=== PATIENT | male | born 1930 | race Caucasian/White ===

== ENCOUNTER 2016-11-16 14:05 | Inpatient (IN) | payer OTHER ==
[~2016-11-16] VITALS: Ht 180.3 cm; Wt 92.5 kg
[~2016-11-16 14:05] MED LIST: DORZ1SOL PO; HRBLS PO; OMEG10007 PO; SIMV10TA2 PO; TIMO0.5S2 IO; TRVOPS OP; ZINC1CAP PO
--- NOTE | 2016-11-16 15:10 | EMERGENCY ROOM VISIT NOTE ---
History Report prepared by Wolfgang: Tin Schmid Under the Supervision of: Dr. Tania Verma D.O. First contact with patient: 14:22 Chief Complaint: CARDIAC ASSESSMENT Stated Complaint: CARDIAC-AFIB/CHF, HIGH BP, SOB, SENT BY DR. ARELLANO Nursing Triage Summary: triage note: pt reports "i kept taking my blood pressure and it was 200/100 and i didn't take it off and it was 190/100 and i have an irregular heart beat." pt has hx of aortic valve replacement, a fib - dr arellano is pt camp advisor. History of Present Illness The patient is a 86 year old male who presents to the Emergency Room for a cardiac assessment. The patient noticed today when he was taking his blood pressure that he felt his heart beating irregularly. His pressure was elevated at 200/100 and 190/100. For the past couple of weeks he notes that he has been having increased shortness of breath. He has a past medical history of an aortic valve replacement, a pacemaker, past PEs, CHF, A FIB, HTN, diabetes, glaucoma, and an ablation. He notes that he was having lower back back for several days with strong smelling urine. He denies any chest pain, palpations, leg swelling, or any other symptoms. He is on Coumadin but does not know what his level has been. Source of History: patient Onset: today Position: other (Cardiac) Symptom Intensity: 200/100 BP Quality: other (HTN) Timing: constant Associated Symptoms: + back pain, + urinary symptoms, No chest pain Note: He denies any leg swelling or any other abnormal symptoms. Review of Systems See HPI for pertinent positives & negatives. A total of 10 systems reviewed and were otherwise negative. Past Medical & Surgical Medical Problems: (1) Atrial fibrillation (2) CAD (coronary artery disease) (3) CHF (congestive heart failure) (4) Diabetes (5) Glaucoma (6) History of deep vein thrombosis (DVT) of lower extremity (7) History of pulmonary embolus (PE) (8) HLD (hyperlipidemia) (9) HTN (hypertension) (10) Pacemaker (11) Pulmonary embolism Surgical Problems: (1) H/O aortic valve replacement (2) S/P AVR (aortic valve replacement) Family History Omitted secondary to the patient's age. Social History Smoking Status: Never Smoker Smokeless Tobacco Use: No Alcohol Use: none Drug Use: none Marital Status: Housing Status: lives with significant other Occupation Status: retired Current/Historical Medications Scheduled Brinzolamide Oph (Azopt Oph), 1 DROP OP BID Cholecalciferol (Vitamin D3), 1,000 INTER.UNIT PO DAILY Colestipol Hcl (Colestid), 4 GM PO BID Desloratadine (Clarinex), 5 MG PO QAM Dorzolamide Hcl (Trusopt Oph), 1 DROPS OP BID Latanoprost (Xalatan 0.005% Oph Mallika), 1 DROPS OP HS Levothyroxine Sodium (Synthroid), 75 MCG PO QAM Metformin Hcl (Glucophage), 500 MG PO BID Sotalol HCl (Sotalol HCl), 80 MG PO BID Timolol Maleate (Timolol Gfs 0.5% (Generic For Timoptic-Xe)), 1 DROP OPB BID Warfarin Sod (Coumadin), 3 TAB PO SuTuWeThSa Warfarin Sod (Coumadin), 4 TAB PO MoFr Allergies Coded Allergies: Aspirin (Verified Allergy, Unknown, SWELLING UPPER LIP, 04/09/09) Physical Exam Vital Signs Date Time Temp Pulse Resp B/P (MAP) Pulse Ox O2 Delivery O2 Flow Rate FiO2 11/16/16 18:03 62 18 149/82 99 Room Air 11/16/16 17:08 60 20 99 Room Air 11/16/16 16:40 81 98 11/16/16 16:31 164/102 11/16/16 15:40 86 24 11/16/16 15:35 87 25 11/16/16 15:21 86 16 155/82 96 Room Air 11/16/16 15:20 155/82 11/16/16 15:05 92 19 11/16/16 14:37 162/ 11/16/16 14:35 95 24 11/16/16 14:29 95 11/16/16 14:12 36.6 105 18 154/79 99 Room Air Physical Exam GENERAL: alert, well appearing, well nourished, no distress, non-toxic EYE EXAM: normal conjunctiva, PERRL and EOM's grossly intact OROPHARYNX: no exudate, no erythema, lips, buccal mucosa, and tongue normal and mucous membranes are moist NECK: supple, no nuchal rigidity, no adenopathy, non-tender LUNGS: Clear to auscultation. Normal chest wall mechanics HEART: Irregular rhythm with normal rate, slight systolic ejection murmur, S1 normal and S2 normal ABDOMEN: abdomen soft, non-tender, normo-active bowel sounds, no masses, no rebound or guarding. BACK: Back is symmetrical on inspection and there is no deformity, no midline tenderness, no CVA tenderness. SKIN: no rashes and no bruising UPPER EXTREMITIES: upper extremities are grossly normal. LOWER EXTREMITIES: No pitting edema. NEURO EXAM: Normal sensorium, cranial nerves II-XII grossly intact, normal speech, no gross weakness of arms, no gross weakness of legs. Medical Decision & Procedures ER Provider Diagnostic Interpretation: Radiology results have been interpreted by the radiologist and reviewed by me. CHEST ONE VIEW PORTABLE CLINICAL HISTORY: 86 years-old Male presenting with sob. TECHNIQUE: Portable upright AP view of the chest was obtained. COMPARISON: None. FINDINGS: Left-sided pacer with lead to the right ventricular apex. Additional lead projects over the main pulmonary artery. Prosthetic aortic valve. Median sternotomy wires with breakage of the superiormost wire, unchanged. Mediastinal surgical clips also noted. Cardiac silhouette enlarged as on prior exam. Bandlike opacities at the left lung base with partial obscuration of the left hemidiaphragm, unchanged. Small left pleural effusion. No pneumothorax. Degenerative changes of the thoracic spine. Upper abdomen normal. IMPRESSION: 1. Cardiomegaly. No mina pulmonary edema. 2. Possible scarring or atelectasis at the left lung base, although underlying consolidation cannot be excluded. 3. Small left pleural effusion. Electronically signed by: Andrea Navarrete M.D. 11/16/2016 3:09 PM Dictated Date/Time: 11/16/2016 3:07 PM Laboratory Results Test 11/16/16 15:30 Immature Granulocyte % (Auto) 0.5 % White Blood Count 7.76 K/uL (4.8-10.8) Red Blood Count 4.55 M/uL (4.7-6.1) Hemoglobin 15.0 g/dL (14.0-18.0) Hematocrit 42.4 % (42-52) Mean Corpuscular Volume 93.2 fL (80-100) Mean Corpuscular Hemoglobin 33.0 pg (25-34) Mean Corpuscular Hemoglobin Concent 35.4 g/dl (32-36) Platelet Count 136 K/uL (130-400) Mean Platelet Volume 9.3 fL (7.4-10.4) Neutrophils (%) (Auto) 66.9 % Lymphocytes (%) (Auto) 22.0 % Monocytes (%) (Auto) 8.5 % Eosinophils (%) (Auto) 1.8 % Basophils (%) (Auto) 0.3 % Neutrophils # (Auto) 5.19 K/uL (1.4-6.5) Lymphocytes # (Auto) 1.71 K/uL (1.2-3.4) Monocytes # (Auto) 0.66 K/uL (0.11-0.59) Eosinophils # (Auto) 0.14 K/uL (0-0.5) Basophils # (Auto) 0.02 K/uL (0-0.2) Immature Granulocyte # (Auto) 0.04 K/uL (0.00-0.02) Magnesium Level 2.1 mg/dl (1.8-2.4) Total Bilirubin 1.3 mg/dl (0.2-1) Aspartate Amino Transf (AST/SGOT) 42 U/L (15-37) Alanine Aminotransferase (ALT/SGPT) 54 U/L (12-78) Alkaline Phosphatase 95 U/L (45-117) Troponin I < 0.015 ng/ml (0-0.045) Pro-B-Type Natriuretic Peptide 2140 pg/ml (0-1800) Total Protein 6.9 gm/dl (6.4-8.2) Albumin 3.6 gm/dl (3.4-5.0) Globulin 3.3 gm/dl (2.5-4.0) Albumin/Globulin Ratio 1.1 (0.9-2) Thyroid Stimulating Hormone (TSH) 2.740 uIu/ml (0.300-4.500) Laboratory results per my review. Medications Administered Medications (Trade) Dose Ordered Sig/Rodney Route Start Time Stop Time Status Last Admin Dose Admin Furosemide (Lasix Inj) 40 mg NOW STAT IV 11/16/16 17:48 11/16/16 17:49 DC 11/16/16 18:03 40 MG ECG Indication: SOB/dyspnea Rate (beats per minute): 98 Rhythm: other (Intermittent pacing) Findings: RBBB, no acute ischemic change, left axis deviation ED Course 1422: The patient was evaluated in room C4. A complete history and physical exam was performed. 1445: I discussed the patient's case with Dr. Arellano of Cardiology in the ER. He is familiar with the patient's history. He advises to continue the evaluation on the patient and to call him once the results have returned. 1635: We are still waiting for the patient's labs. 1748: Ordered Lasix Inj 40 mg IV 1752: I called Dr. Arellano back and discussed the results with him. He wishes that the patient is further evaluated as an inpatient. 1802: Upon reevaluation, the patient is resting. I discussed the findings and the treatment plan with the patient. He expresses agreement and understanding. I spoke with Cierra Dale [facility] He will be evaluated by her for further management Medical Decision Differential diagnosis: Etiologies such as infections, reactive airway disease, pneumonia, pneumothorax , COPD, CHF, cardiac ischemia, pulmonary embolism, musculoskeletal, gastrointestinal, as well as others were entertained. Patient with significant cardiac history worsening symptoms over the last 7-10 days per both patient and family report. Patient stable vital signs here, no hypoxia on ambulation however did appear to have increased work of breathing. Patient's case as well as all results discussed with his camp advisor Dr. Arellano who recommended admission for continued monitoring, gentle diuresis, and echo. He will see in consult. This was discussed with the hospitalist. Patient with therapeutic INR, doubt PE/DVT. No focal infiltrate noted, doubt occult infection, doubt bacteremia/sepsis. Patient and family aware of all results were agreeable with plan. Likely patient's paroxysmal A. fib contributing to exacerbation of congestive heart failure. Medication Reconcilliation Current Medication List: was personally reviewed by me Blood Pressure Screening Patient's blood pressure: Elevated blood pressure Blood pressure disposition: Elevated BP felt to be situational Consults Time Called: 1445 Consulting Physician: Dr. Arellano - Cardiology Returned Call: 1450 We discussed the patient's case. He is familiar with the patient. I will call him back once the patient's evaluation is complete. Additional Consults: Time Called: 1750 Consulted Physician: Dr. Adan Velazquez Cardiology Returned Call: 1752 Additional Comments: He would like the patient to be evaluated further as an inpatient. Time Called: 1800 Consulted Physician: Cierra Dale PA-C - [facility] Returned Call: [phone] Additional Comments: I reviewed the patient's case with her. She will evaluate the patient for further management. Impression Primary Impression: Dyspnea on exertion Additional Impressions: CHF (congestive heart failure) Atrial fibrillation Pacemaker HTN (hypertension) Scribe Attestation The scribe's documentation has been prepared under my direction and personally reviewed by me in its entirety. I confirm that the note above accurately reflects all work, treatment, procedures, and medical decision making performed by me. Departure Information Dispostion Being Evaluated By Hospitalist Carlos Davis M.D. (PCP) Patient Instructions My [facility] Problem Qualifiers Additional Impressions: CHF (congestive heart failure) Congestive heart failure type: combined Congestive heart failure chronicity: acute on chronic Qualified Codes: I50.43 - Acute on chronic combined systolic (congestive) and diastolic (congestive) heart failure Atrial fibrillation Atrial fibrillation type: paroxysmal Qualified Codes: I48.0 - Paroxysmal atrial fibrillation HTN (hypertension) Hypertension type: essential hypertension Qualified Codes: I10 - Essential ( primary) hypertension
[2016-11-16 15:44] LABS: BASO % 0.3 %; BASO ABS # 0.02 K/uL (0-0.2); COMPLETE YES; EOS % 1.8 %; HEMATOCRIT 42.4 % (42-52); IG% 0.5 %; LYMPH ABS # 1.71 K/uL (1.2-3.4); MEAN CELL VOLUME 93.2 fL (80-100); MEAN CORPUSCULAR HGB CONC 35.4 g/dl (32-36); MEAN PLATELET VOLUME 9.3 fL (7.4-10.4); MONO % 8.5 %; NEUT % 66.9 %; PLATELET COUNT 136 K/uL (130-400); RED BLOOD COUNT 4.55 M/uL (4.7-6.1); WHITE BLOOD COUNT 7.76 K/uL (4.8-10.8)
[2016-11-16 15:56] LABS: INR 2.2 (0.9-1.1); PROTHROMBIN TIME (PATIENT) 24.7 SECONDS (9.0-12.0)
[2016-11-16] MEDS ORDERED: GLC/500 PO (16:05)
[2016-11-16] MEDS ORDERED: TMPXEOPS OPB (16:05)
[2016-11-16] MEDS ORDERED: WARF10TA4 PO (16:05)
[2016-11-16] MEDS ORDERED: CHOL1000 PO (16:05)
[2016-11-16] MEDS ORDERED: WARF7.5T4 PO (16:05)
[2016-11-16] MEDS ORDERED: COLE1TAB PO ×2 (16:05→19:20)
[2016-11-16] MEDS ORDERED: LATA0.009 OP (16:05)
[2016-11-16] MEDS ORDERED: BTP80 PO (16:05)
[2016-11-16] MEDS ORDERED: CLR/5 PO (16:05)
[2016-11-16] MEDS ORDERED: BRIN1SUS OP (16:05)
[2016-11-16] MEDS ORDERED: DORZ2SOL17 OP (16:05)
[2016-11-16] MEDS ORDERED: SYN75 PO (16:06)
[2016-11-16 16:30] LABS: ALT/SGPT 54 U/L (12-78); AST/SGOT 42 U/L (15-37); BLOOD UREA NITROGEN 17 mg/dl (7-18); BUN/CREATININE RATIO 15.8 (10-20); CALCIUM 9.6 mg/dl (8.5-10.1); CARBON DIOXIDE 23 mmol/L (21-32); CHLORIDE 101 mmol/L (98-107); GLUCOSE 123 mg/dl (70-99); MAGNESIUM 2.1 mg/dl (1.8-2.4); POTASSIUM 4.3 mmol/L (3.5-5.1); SODIUM 132 mmol/L (136-145)
[2016-11-16 16:40] LABS: ALB/GLOB RATIO 1.1 (0.9-2); ALKALINE PHOSPHATASE 95 U/L (45-117)
[2016-11-16] MEDS ORDERED: FUROSEMIDE 40 MG/4 ML VIAL IV STA (17:48)
[2016-11-16] MEDS ORDERED: DEXTROSE 50% 50 ML SYR IV PRN (19:00)
[2016-11-16] MEDS ORDERED: GLUCOSE 10 TABS/TUBE PO PRN (19:00)
[2016-11-16] MEDS ORDERED: GLUCAGON FOR INJ 1 MG VIAL SQ PRN (19:00)
[2016-11-16] MEDS ORDERED: ONDANSETRON INJ 2 MG/ML 2 ML VIAL IV PRN (19:00)
[2016-11-16] MEDS ORDERED: GLUCOSE 40% GEL 15 GM TUBE PO PRN (19:00)
[2016-11-16] MEDS ORDERED: METOPROLOL TARTRATE 1 MG/ML VIAL IV PRN (19:15)
[2016-11-16] MEDS ORDERED: CMD/25 PO ×2 (19:20)
--- NOTE | 2016-11-16 20:39 | History and Physical ---
History & Physical Date & Time of Service: Nov 16, 2016 at 20:28 Chief Complaint: SOB Primary Care Physician: Carlos Rojas M.D. History of Present Illness Source: patient, family, clinic records This is an 86yo male with a PMH of HTN, A fib (on coumadin), CAD (s/p CABG x 4) , Aortic stenosis (s/p AVR with prosthetic valve), pacemaker, DM II, h/o DVTs (s /p IVC placement) who presents with elevated blood pressure and an irregular heart beat. Patient reports taking his BP at home today with elevated readings of 200/100 and 190/100. States that he also noticed an "irregular heart beat" that started around the same time. Associated symptoms include dyspnea on exertion and some weight gain over the past week. At baseline, patient is able to ambulate by cane without any SOB but has noticed increased dyspnea in the past few weeks. Also states that he ate out for a few meals last week and noticed a ~5 pound weight gain and some swelling in his ankles that has since resolved. Denies any lightheadedness, CP, orthopnea, PND, abd pain. Does endorse strong smelling urine and some flank pain over the past few days. No fever, chills, dysuria, hematuria. Patient recently established care with Dr. Arellano and was seen in October. Most recent echo performed in 02/16 showing normal LV and an EF of 50-55%. Per chart review, underwent a Michael 2 Maze procedure for A fib in 2012. In July of 2015, patient underwent cardioversion for atrial flutter and was started on sotalol. Has continue to take sotalol without any more symptomatic events. Past Medical/Surgical History Medical Problems: (1) Atrial fibrillation Status: Chronic (2) CHF (congestive heart failure) Status: Chronic (3) Diabetes Status: Chronic (4) HTN (hypertension) Status: Chronic (5) Pacemaker Status: Chronic (6) Pulmonary embolism Status: Resolved Surgical Problems: (1) H/O aortic valve replacement Status: Resolved Social History Smoking Status: Never Smoker Smokeless Tobacco Use: No Drug Use: none Marital Status: Occupational Status: retired Immunizations History of Influenza Vaccine: Yes History of Tetanus Vaccine?: Yes History of Pneumococcal: Yes History of Hepatitis B Vaccine: No Allergies Coded Allergies: Aspirin (Verified Allergy, Unknown, SWELLING UPPER LIP, 2/5/10) Home Medications Scheduled Brinzolamide Oph (Azopt Oph), 1 DROP OP BID Cholecalciferol (Vitamin D3), 1,000 INTER.UNIT PO DAILY Colestipol Hcl (Colestid), 4 GM PO BID Desloratadine (Clarinex), 5 MG PO QAM Dorzolamide Hcl (Trusopt Oph), 1 DROPS OP BID Latanoprost (Xalatan 0.005% Oph Mallika), 1 DROPS OP HS Levothyroxine Sodium (Synthroid), 75 MCG PO QAM Metformin Hcl (Glucophage), 500 MG PO BID Sotalol HCl (Sotalol HCl), 80 MG PO BID Timolol Maleate (Timolol Gfs 0.5% (Generic For Timoptic-Xe)), 1 DROP OPB BID Warfarin Sod (Coumadin), 3 TAB PO SuTuWeThSa Warfarin Sod (Coumadin), 4 TAB PO MoFr Review of Systems Ten systems reviewed and negative except as noted in the HPI. Physical Exam Vital Signs Date Time Temp Pulse Resp B/P (MAP) Pulse Ox O2 Delivery O2 Flow Rate FiO2 11/16/16 20:03 36.6 62 18 149/82 99 11/16/16 18:03 62 18 149/82 99 Room Air 11/16/16 17:08 60 20 99 Room Air 11/16/16 16:40 81 98 11/16/16 16:31 164/102 11/16/16 15:40 86 24 11/16/16 15:35 87 25 11/16/16 15:21 86 16 155/82 96 Room Air 11/16/16 15:20 155/82 11/16/16 15:05 92 19 11/16/16 14:37 162/ 11/16/16 14:35 95 24 11/16/16 14:29 95 11/16/16 14:12 36.6 105 18 154/79 99 Room Air General Appearance: WD/WN, no apparent distress Head: normocephalic, atraumatic Eyes: normal inspection, PERRL ENT: hearing grossly normal Neck: supple, no adenopathy, thyroid normal, no JVD, trachea midline Respiratory/Chest: chest non-tender, no respiratory distress, no accessory muscle use, + crackles (Faint crackles at bases. Otherwise clear to auscultation. ) Cardiovascular: regular rate, rhythm, no murmur, normal peripheral pulses Abdomen/GI: normal bowel sounds, non tender, soft, no organomegaly Back: normal inspection, no CVA tenderness Extremities/Musculoskelatal: normal inspection, no calf tenderness, normal capillary refill, no pedal edema Neurologic/Psych: alert, normal mood/affect, oriented x 3 Skin: normal color, warm/dry, no rash Diagnostics Laboratory Results Results Past 24 Hours Test 11/16/16 15:30 Range/Units White Blood Count 7.76 4.8-10.8 K/uL Red Blood Count 4.55 4.7-6.1 M/uL Hemoglobin 15.0 14.0-18.0 g/dL Hematocrit 42.4 42-52 % Mean Corpuscular Volume 93.2 80-100 fL Mean Corpuscular Hemoglobin 33.0 25-34 pg Mean Corpuscular Hemoglobin Concent 35.4 32-36 g/dl Platelet Count 136 130-400 K/uL Mean Platelet Volume 9.3 7.4-10.4 fL Neutrophils (%) (Auto) 66.9 % Lymphocytes (%) (Auto) 22.0 % Monocytes (%) (Auto) 8.5 % Eosinophils (%) (Auto) 1.8 % Basophils (%) (Auto) 0.3 % Neutrophils # (Auto) 5.19 1.4-6.5 K/uL Lymphocytes # (Auto) 1.71 1.2-3.4 K/uL Monocytes # (Auto) 0.66 0.11-0.59 K/uL Eosinophils # (Auto) 0.14 0-0.5 K/uL Basophils # (Auto) 0.02 0-0.2 K/uL RDW Standard Deviation 45.3 36.4-46.3 fL RDW Coefficient of Variation 13.3 11.5-14.5 % Immature Granulocyte % (Auto) 0.5 % Immature Granulocyte # (Auto) 0.04 0.00-0.02 K/uL Prothrombin Time 24.7 9.0-12.0 SECONDS Prothromb Time International Ratio 2.2 0.9-1.1 Sodium Level 132 136-145 mmol/L Potassium Level 4.3 3.5-5.1 mmol/L Chloride Level 101 98-107 mmol/L Carbon Dioxide Level 23 21-32 mmol/L Anion Gap 8.0 3-11 mmol/L Blood Urea Nitrogen 17 7-18 mg/dl Creatinine 1.10 0.60-1.40 mg/dl Est Creatinine Clear Calc Drug Dose 55.0 ml/min Estimated GFR () 69.1 Estimated GFR (Non- 59.6 BUN/Creatinine Ratio 15.8 10-20 Random Glucose 123 70-99 mg/dl Calcium Level 9.6 8.5-10.1 mg/dl Magnesium Level 2.1 1.8-2.4 mg/dl Total Bilirubin 1.3 0.2-1 mg/dl Aspartate Amino Transf (AST/SGOT) 42 15-37 U/L Alanine Aminotransferase (ALT/SGPT) 54 12-78 U/L Alkaline Phosphatase 95 45-117 U/L Troponin I < 0.015 0-0.045 ng/ml Pro-B-Type Natriuretic Peptide 2140 0-1800 pg/ml Total Protein 6.9 6.4-8.2 gm/dl Albumin 3.6 3.4-5.0 gm/dl Globulin 3.3 2.5-4.0 gm/dl Albumin/Globulin Ratio 1.1 0.9-2 Thyroid Stimulating Hormone (TSH) 2.740 0.300-4.500 uIu/ml Diagnostic Radiology CXR: IMPRESSION: 1. Cardiomegaly. No mina pulmonary edema. 2. Possible scarring or atelectasis at the left lung base, although underlying consolidation cannot be excluded. 3. Small left pleural effusion. EKG Atrial fibrillation at 98 bpm Right bundle branch block Left anterior fascicular block Impression Assessment and Plan This is an 86yo male with a PMH of HTN, A fib (on coumadin), CAD (s/p CABG x 4) , Aortic stenosis (s/p AVR with prosthetic valve), pacemaker, DM II, h/o DVTs (s /p IVC placement) who presents with elevated blood pressure and an irregular heart beat. Shortness of breath: -Likely 2/2 decompensated CHF, A Fib -See below Atrial fibrillation (on coumadin): -Admission EKG shows A fib. Spontaneously resolved. -Continue home dose of sotalol -Continue warfarin -INR therapeutic at 2.2 -On tele Decompensated CHF: -SOB, + weight gain -Previous echo (02/16) with EF of 50-55% -CXR with cardiomegaly, small L pleural effusion, no mina pulm edema -Given 40 IV Lasix in ER -20 IV Lasix scheduled tomorrow -Repeat echo ordered -Consulted cardio, appreciate recs Malodorous urine/flank pain: -No fever, chills, leukocytosis -UA pending , culture if indicated -Follow up CAD (s/p CABG x 4): -Denies CP -EKG with a fib, RBBB, L fascicular block -Trop negative x 1 -Repeat EKG in AM DM II: -Hgb a1c of 6.4 in 04/21 -Repeat hgb alc -Held home meds -SSI with in-patient -BG checks AC HS HTN: -Slightly elevated -Continue lasix, IV lopressor if SBP >160 -Monitor HLD: -Statins contraindicated -Continue colestipol Glaucoma: -Continue home eye drops DVT Ppx: on warfarin Code status: DNR per discussion and living will PCP: Bob Dispo: Plan to return home once medically stable Agree with above H and P. Briefly 86m pmhx as mentioned above presents with sob on exertion going on about a week and elevated blood pressure and feeling of irregular heart rate. Received a dose of iv Lasix in ER. currently feeling better. Hemodynamically stable.Denies any chest pain. p/e Ge not in distress Cvs s 1nad s2 heard irregular Rs cta b/l no added sounds Abd benign [employer] non focl Ext trace pedal edema present a/p sob from chf a fib received iv Lasix in er will continue Lasix echo cardiology consult monitor tele A fib' rates under control on Coumadin and inr therapeutic Level of Care Telemetry Resuscitation Status DO NOT RESUSCITATE VTE Prophylaxis VTE Risk Assessment Done? Y/N: Yes Risk Level: Moderate Given or contraindicated: Warfarin (Coumadin)
[2016-11-16] MEDS: LATANOPROST 0.005% OP SOLN 2.5 ML BTL OP SCH (21:24)
[2016-11-16] MEDS: DORZOLAMIDE HCL 2% OPH SOLN 10 ML BTL OP SCH (21:24)
[2016-11-16] MEDS: TIMOLOL GFS 0.5% OPH SOLN 74 DROPS/5 ML BTL OPB SCH (21:25)
[2016-11-16] MEDS: SOTALOL HCL 80 MG TAB PO SCH (21:25)
[2016-11-16] MEDS: BRINZOLAMIDE (AZOPT) OPS 10 ML BTL OP SCH (21:25)
[2016-11-16] MEDS: COLESTIPOL HCL 1 GM TAB PO SCH (21:26)
[2016-11-16] MEDS: NITROGLYCERIN OINT 2% 1GM PACKET EXT SCH (21:32)
[2016-11-16] MEDS: INSULIN ASPART 100 UNITS/ML 3 ML PEN SC SCH (21:34)
[2016-11-16 21:59] VITALS: BP 138/72; PULSE 78; TEMP 36.7; O2SAT 98; Ht 180.3 cm; Wt 92.5 kg
[2016-11-16 22:04] LABS: URINE APPEARANCE CLEAR (CLEAR); URINE BILIRUBIN NEG (NEG); URINE COLOR YELLOW; URINE NITRITE NEG (NEG); URINE SPECIFIC GRAVITY 1.015 (1.000-1.030); UROBILINOGEN NEG (NEG); ZZUR CULT IF INDIC CLEAN CATCH NO
[2016-11-16 22:08] LABS: MANUAL MICROSCOPIC REQUIRED? NO; REVIEW REQ? NO
[2016-11-16 23:44] VITALS: BP 107/71; PULSE 92; TEMP 36.8; O2SAT 97
[2016-11-17] VITALS (9 sets, daily range): BP systolic 113–154; BP diastolic 66–88; PULSE 74–89; TEMP 36.4–36.8; O2SAT 93–98
[2016-11-17] MEDS: NITROGLYCERIN OINT 2% 1GM PACKET EXT SCH ×4 (03:03→21:06)
[2016-11-17 05:42] LABS: HEMATOCRIT 41.2 % (42-52); MEAN CELL VOLUME 94.9 fL (80-100); MEAN CORPUSCULAR HEMOGLOBIN 32.3 pg (25-34); MEAN PLATELET VOLUME 9.6 fL (7.4-10.4); PLATELET COUNT 145 K/uL (130-400); RED BLOOD COUNT 4.34 M/uL (4.7-6.1); WHITE BLOOD COUNT 7.76 K/uL (4.8-10.8)
[2016-11-17] MEDS: LEVOTHYROXINE 75 MCG TAB PO SCH (05:45)
[2016-11-17 05:52] LABS: INR 2.4 (0.9-1.1); PROTHROMBIN TIME (PATIENT) 26.2 SECONDS (9.0-12.0)
[2016-11-17 06:27] LABS: BUN/CREATININE RATIO 19.2 (10-20); CREATININE 1.3 mg/dl (0.60-1.40); POTASSIUM 4.1 mmol/L (3.5-5.1)
[2016-11-17 06:55] LABS: ESTIMATED AVERAGE GLUCOSE 134 mg/dl; HA1C FLAG Normal (Normal)
[2016-11-17] MEDS: BRINZOLAMIDE (AZOPT) OPS 10 ML BTL OP SCH ×2 (07:45→20:40)
[2016-11-17] MEDS: TIMOLOL GFS 0.5% OPH SOLN 74 DROPS/5 ML BTL OPB SCH ×2 (07:46→20:40)
[2016-11-17] MEDS: SOTALOL HCL 80 MG TAB PO SCH ×2 (07:48→21:06)
[2016-11-17] MEDS: CHOLECALCIFEROL 1000 INTER.UNIT TAB PO SCH (07:48)
[2016-11-17] MEDS: COLESTIPOL HCL 1 GM TAB PO SCH ×2 (07:48→21:05)
[2016-11-17] MEDS: DORZOLAMIDE HCL 2% OPH SOLN 10 ML BTL OP SCH ×2 (07:51→20:40)
[2016-11-17] MEDS ORDERED: PERFLUTREN LIPID MICROSPHERE (DEFINITY) IV ONE (07:59)
[2016-11-17] MEDS: INSULIN ASPART 100 UNITS/ML 3 ML PEN SC SCH ×4 (08:09→20:45)
[2016-11-17] MEDS ORDERED: NON-FORMULARY MEDICATION (Desloratadine (Clarinex) 5 MG) PO SCH (09:00)
[2016-11-17] MEDS ORDERED: FUROSEMIDE INJ 20 MG in SYRINGE 0 ML IV SCH (09:00)
--- NOTE | 2016-11-17 13:06 | ECHOCARDIOGRAM REPORT ---
*NOTICE TO RECEIVING [employer] This information is strictly Confidential and protected under [place] law. [place] law prohibits you from making any further disclosure of this information unless further disclosure is expressly permitted by the written consent of the person to whom it pertains or is authorized by law. A general authorization for the release of medical or other information is not sufficient for this purpose. Hospital accepts no responsibility if the information is made available to any other person, INCLUDING THE PATIENT. Interpretation Summary * Name: JOSE TOWNSEND Study Date: 11/17/2016 06:30 AM BP: 113/66 mmHg * Patient Location: .[facility]\S\N283\S\2 HR: 105 * : 1930 (M/d/yyyy) Gender: Male Height: 70 in * Age: 86 yrs Ethnicity: [place] Weight: 212 lb * Ordering Physician: Cierra Dale * Referring Physician: Steve Arellano * Performed By: Elaine Sadler RCS * * Reason For Study: CHF * BSA: 2.1 m2 * -- Conclusions -- * The left ventricle is normal in size. * Ejection Fraction = 50-55%. * The right ventricular systolic function is normal. * The left atrium is moderately dilated. * The right atrium is moderately dilated. * The gradient is normal for this prosthetic aortic valve. Procedure Details * A contrast injection of Definity was performed to improve assessment of LV function. * Contrast was injected into an intravenous site in the right arm. * One vial of Definity ultrasound contrast was diluted in normal saline to a total volume of 10 ml. A total of '4' ml of solution was administered during imaging. * Lot # [id number] of Definity utilized for procedure. * Expiration date . * The attending nurse who injected the contrast agent was JEMIMA MORRIS. Left Ventricle * The left ventricle is normal in size. * Ejection Fraction = 50-55%. * The left ventricular wall motion is normal. Right Ventricle * The right ventricle is normal size. * There is a pacemaker lead in the right ventricle. * The right ventricular systolic function is normal. Atria * The left atrium is moderately dilated. * The right atrium is moderately dilated. * The interatrial septum is intact with no evidence for an atrial septal defect. Mitral Valve * There is mild to moderate mitral annular calcification. * Significant mitral regurgitation is absent. Tricuspid Valve * The tricuspid valve is not well visualized, but is grossly normal. * Significant tricuspid regurgitation is absent. Aortic Valve * The prosthetic aortic valve appears to open well. * The gradient is normal for this prosthetic aortic valve. Pulmonic Valve * The pulmonic valve is not well visualized. Great Vessels * The aortic root and proximal ascending aorta are normal sized. Pericardium/Pleural * There is no pericardial effusion. MMode 2D Measurements and Calculations IVSd 1.3 cm LVIDd 5.5 cm LVIDs 4.0 cm LVPWd 1.3 cm IVS/LVPW 1.0 FS 28.3 % EDV(Teich) 149.7 ml ESV(Teich) 68.7 ml EF(Teich) 54.1 % EDV(cubed) 169.8 ml ESV(cubed) 62.5 ml EF(cubed) 63.2 % LV mass(C)d 319.5 grams LV mass(C)dI 149.3 grams/m\S\2 SV(Teich) 81.0 ml SI(Teich) 37.9 ml/m\S\2 SV(cubed) 107.3 ml SI(cubed) 50.1 ml/m\S\2 Ao root diam 3.6 cm Ao root area 10.0 cm\S\2 LVOT diam 2.0 cm LVOT area 3.1 cm\S\2 LVOT area(traced) 3.1 cm\S\2 LVAd ap4 31.1 cm\S\2 LVLd ap4 8.4 cm EDV(MOD-sp4) 92.4 ml EDV(sp4-el) 97.4 ml LVAs ap4 21.0 cm\S\2 LVLs ap4 7.6 cm ESV(MOD-sp4) 50.3 ml ESV(sp4-el) 49.0 ml EF(MOD-sp4) 45.5 % EF(sp4-el) 49.7 % LVAd ap2 30.5 cm\S\2 LVLd ap2 8.4 cm EDV(MOD-sp2) 90.1 ml EDV(sp2-el) 94.1 ml LVAs ap2 22.3 cm\S\2 LVLs ap2 7.7 cm ESV(MOD-sp2) 53.7 ml ESV(sp2-el) 54.8 ml EF(MOD-sp2) 40.5 % EF(sp2-el) 41.7 % LVLd %diff -0.26 % EDV(MOD-bp) 92.4 ml LVLs %diff 0.74 % ESV(MOD-bp) 51.3 ml EF(MOD-bp) 44.5 % SV(MOD-sp4) 42.1 ml SI(MOD-sp4) 19.7 ml/m\S\2 SV(MOD-sp2) 36.5 ml SI(MOD-sp2) 17.1 ml/m\S\2 SV(MOD-bp) 41.1 ml SI(MOD-bp) 19.2 ml/m\S\2 SV(sp4-el) 48.4 ml SI(sp4-el) 22.6 ml/m\S\2 SV(sp2-el) 39.3 ml SI(sp2-el) 18.4 ml/m\S\2 Doppler Measurements and Calculations Ao V2 max 184.3 cm/sec Ao max PG 13.6 mmHg Ao max PG (full) 12.2 mmHg Ao V2 mean 131.4 cm/sec Ao mean PG 7.7 mmHg Ao mean PG (full) 7.1 mmHg Ao V2 VTI 36.3 cm DOV(I,A) 1.0 cm\S\2 DOV(I,D) 1.0 cm\S\2 DOV(V,A) 1.0 cm\S\2 DOV(V,D) 1.0 cm\S\2 LV V1 max PG 1.4 mmHg LV V1 mean PG 0.62 mmHg LV V1 max 59.7 cm/sec LV V1 mean 35.8 cm/sec LV V1 VTI 11.8 cm SV(Ao) 365.2 ml SI(Ao) 170.7 ml/m\S\2 SV(LVOT) 36.6 ml SI(LVOT) 17.1 ml/m\S\2 TR max wander 281.0 cm/sec
[2016-11-17] MEDS ORDERED: NURSING VERBAL MED ORDER ONE (16:30)
[2016-11-17] MEDS ORDERED: WARFARIN SOD 10 MG TAB PO ONE (16:30)
--- NOTE | 2016-11-17 17:47 | CARDIOLOGY CONSULTATION ---
DATE OF CONSULTATION: 11/17/2016 REASON FOR CONSULTATION: Shortness of breath. HISTORY OF PRESENT ILLNESS: Mr. Sigala is an 86-year-old male patient who I first saw approximately a month ago when he has established himself with our practice. 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 He has a history of a congenital bicuspid aortic valve and underwent an AVR in 2012, receiving a bioprosthetic valve. He also underwent coronary artery bypass surgery in Michael II Maze procedure. Following the surgery, he required a permanent pacemaker. He had a prolonged recovery time, but eventually did well until 2016, he developed atrial flutter requiring a cardioversion. He was at that time that he was started on sotalol. Other pertinent history includes DVT and a prior pulmonary emboli, for which he has been on long-term anticoagulation. It should be noted, however, that he did receive an IVC filter prior to his open heart surgery in 2012. Over the past 1-2 weeks, the patient has been experiencing progressive shortness of breath. Mostly just dyspnea with activity. He has had no dizziness or lightheadedness. No chest pain. Following admission here, his echocardiogram would indicate preserved left ventricular systolic function with a bioprosthetic aortic valve functioning appropriately and an estimated left ventricular ejection fraction of 50%-55%. His first EKG suggested atrial fibrillation; however, subsequent EKGs do indicate a more regular rhythm, which is paced and could be sinus with V pacing. He received diuretics after admission to the hospital. He had a brisk diuresis and feels much improved today. He has been up walking the halls and denies chest pain or dyspnea. ALLERGIES: CRESTOR, OXYCODONE, PRAVACHOL, STATIN, SALICYLATES AND ZOCOR. PAST MEDICAL HISTORY: As outlined above, the patient underwent coronary artery bypass surgery and received a bioprosthesis in the aortic position in 2012. He also had a Michael II Maze procedure during that surgery for atrial fibrillation. He treated for diabetes. He has a permanent pacemaker. He has a history of spontaneous DVT and pulmonary emboli, for which he has been on chronic anticoagulation and received an IVC filter. He has a history of STATIN INTOLERANCE. SOCIAL HISTORY: He lives with his . He is a nonsmoker. FAMILY MEDICAL HISTORY: Noncontributory. REVIEW OF SYSTEMS: A 10-point review of systems is negative except for the history of chief complaint. PHYSICAL EXAMINATION: GENERAL: He is alert and oriented. VITAL SIGNS: Blood pressure is 130/80 and pulse is regular at 80 beats per minute. He is afebrile. HEENT: He is normocephalic. Pupils are equal and reactive to light. Extraocular muscles are intact bilaterally. NECK: The neck veins are flat. Carotids have good upstrokes bilaterally without bruits. Thyroid is nonpalpable. RESPIRATORY: Breath sounds equal bilaterally and clear to auscultation. CARDIOVASCULAR: Heart has a regular rhythm. Normal S1 and S2. No S3 or S4. GASTROINTESTINAL: Abdomen is soft and nontender without organomegaly. Extremities are free of edema, digit clubbing, or cyanosis. NEUROLOGIC: Grossly intact. SKIN: Warm to touch. LYMPH NODES: Negative to palpation. LABORATORY DATA: B natriuretic peptide was 2140. Cardiac troponins are negative. IMPRESSION: 1. Congestive heart failure. 2. Diastolic dysfunction. 3. Status post aortic valve replacement and coronary artery bypass grafting. 4. Chronic renal insufficiency. RECOMMENDATIONS: I think the patient was experiencing some mild congestive heart failure, which quickly improved after given IV diuretics. He was also on admission noted to be in atrial fibrillation, which may have been contributing to his symptoms. As mentioned above, he now is in a regular paced rhythm and I believe this suggests that he may have gone back into sinus mechanism. He is feeling much improved. I would recommend that we start him on a daily dose of Lasix. We could possibly send him home on 20 mg of Lasix every day or at least 3 days per week to start. Otherwise, he is doing well. I have recommended that he ambulate in the halls for the rest of today and if he is feeling well by tomorrow, we may be able to discharge him to outpatient followup.
--- NOTE | 2016-11-17 17:47 | Progress Note ---
Internal Med Progress Note Date of Service: Nov 17, 2016. Provider Documentation: SUBJECTIVE: sitting on the chair comfortably sob improved ambulated without sob no chest pains no nausea OBJECTIVE: Vital Signs-as noted below Exam: General-alert and oriented. Not in distress ENT-normal hearing Neck-no neck masses Lungs-cta b/l no wheezing no crackles present Heart-s1 and s2 heard regular rhythm, no murmurs Abdomen-soft bowel sounds present non tender no distension Extremities no edema present no erythema Neuro-alert and oriented moves extremities Lab data as noted below. ASSESSMENT & PLAN: This is an 86yo male with a PMH of HTN, A fib (on coumadin), CAD (s/p CABG x 4) , Aortic stenosis (s/p AVR with prosthetic valve), pacemaker, DM II, h/o DVTs (s /p IVC placement) who presents with elevated blood pressure and an irregular heart beat. Shortness of breath: Likely 2/2 decompensated CHF, A Fib improved Atrial fibrillation (on coumadin): Admission EKG shows A fib. Spontaneously resolved. to continue home dose of sotalol on warfarin -INR therapeutic at 2.4 stable echo ok Decompensated CHF with preserved EF: SOB, + weight gain Previous echo (02/16) with EF of 50-55% CXR with cardiomegaly, small L pleural effusion, no mina pulm edema on iv lasix cardiology on board improving to monitor Malodorous urine/flank pain: asymptomatic cx pending CAD (s/p CABG x 4): no chest pain EKG with a fib, RBBB, L fascicular block Ce negative DM II: metformin on hold hba1c 6.3 on iss will monitor HTN: on sotalol added nitro paste Lopressor prn will monitor. HLD: Statins contraindicated on colestipol Glaucoma: Continue home eye drops DVT Ppx: on warfarin . Code status: DNR Disposition: possible d/c in am Vital Signs: Date Time Temp Pulse Resp B/P (MAP) Pulse Ox O2 Delivery O2 Flow Rate FiO2 11/17/16 15:32 36.7 83 18 154/88 (110) 93 Room Air 11/17/16 12:08 36.6 87 20 138/87 (104) 97 Room Air 11/17/16 08:00 Room Air 11/17/16 07:41 36.4 86 18 134/82 (99) 93 Room Air 11/17/16 04:00 Room Air 11/17/16 03:27 36.6 77 16 113/66 (82) 95 Room Air 11/17/16 00:00 Room Air 11/16/16 23:44 36.8 92 18 107/71 (83) 97 Room Air 11/16/16 21:59 36.7 78 20 138/72 98 Room Air 11/16/16 20:03 36.6 62 18 149/82 99 11/16/16 18:03 62 18 149/82 99 Room Air Lab Results: Results Past 24 Hours Test 11/16/16 20:28 11/16/16 21:40 11/17/16 05:26 11/17/16 07:17 Range/Units Bedside Glucose 185 144 70-99 mg/dl Urine Color YELLOW Urine Appearance CLEAR CLEAR Urine pH 5.0 4.5-7.5 Urine Specific [place] 1.015 1.000-1.030 Urine Protein NEG NEG Urine Glucose (UA) NEG NEG Urine Ketones NEG NEG Urine Occult Blood NEG NEG Urine Nitrite NEG NEG Urine Bilirubin NEG NEG Urine Urobilinogen NEG NEG Urine Leukocyte Esterase NEG NEG White Blood Count 7.76 4.8-10.8 K/uL Red Blood Count 4.34 4.7-6.1 M/uL Hemoglobin 14.0 14.0-18.0 g/dL Hematocrit 41.2 42-52 % Mean Corpuscular Volume 94.9 80-100 fL Mean Corpuscular Hemoglobin 32.3 25-34 pg Mean Corpuscular Hemoglobin Concent 34.0 32-36 g/dl RDW Standard Deviation 46.3 36.4-46.3 fL RDW Coefficient of Variation 13.3 11.5-14.5 % Platelet Count 145 130-400 K/uL Mean Platelet Volume 9.6 7.4-10.4 fL Prothrombin Time 26.2 9.0-12.0 SECONDS Prothromb Time International Ratio 2.4 0.9-1.1 Sodium Level 139 136-145 mmol/L Potassium Level 4.1 3.5-5.1 mmol/L Chloride Level 105 98-107 mmol/L Carbon Dioxide Level 29 21-32 mmol/L Anion Gap 5.0 3-11 mmol/L Blood Urea Nitrogen 25 7-18 mg/dl Creatinine 1.30 0.60-1.40 mg/dl Est Creatinine Clear Calc Drug Dose 45.8 ml/min Estimated GFR () 56.5 Estimated GFR (Non- 48.7 BUN/Creatinine Ratio 19.2 10-20 Random Glucose 117 70-99 mg/dl Estimated Average Glucose 134 mg/dl Hemoglobin A1c 6.3 4.5-5.6 % Calcium Level 9.0 8.5-10.1 mg/dl Test 11/17/16 11:49 11/17/16 16:32 Range/Units Bedside Glucose 90 123 70-99 mg/dl
[2016-11-17] MEDS: LATANOPROST 0.005% OP SOLN 2.5 ML BTL OP SCH (20:40)
[2016-11-18 01:59] VITALS: BP 109/69; PULSE 98
[2016-11-18] MEDS: NITROGLYCERIN OINT 2% 1GM PACKET EXT SCH ×2 (02:01→08:31)
[2016-11-18 03:36] VITALS: BP 134/79; PULSE 83; TEMP 36.6; O2SAT 99
[2016-11-18] MEDS: LEVOTHYROXINE 75 MCG TAB PO SCH (07:02)
[2016-11-18 07:53] VITALS: BP 137/73; PULSE 90; TEMP 36.5; O2SAT 98
[2016-11-18] MEDS: INSULIN ASPART 100 UNITS/ML 3 ML PEN SC SCH ×2 (08:02→11:00)
[2016-11-18] MEDS: COLESTIPOL HCL 1 GM TAB PO SCH (08:32)
[2016-11-18] MEDS: SOTALOL HCL 80 MG TAB PO SCH (08:32)
[2016-11-18] MEDS: TIMOLOL GFS 0.5% OPH SOLN 74 DROPS/5 ML BTL OPB SCH (08:33)
[2016-11-18] MEDS: BRINZOLAMIDE (AZOPT) OPS 10 ML BTL OP SCH (08:33)
[2016-11-18] MEDS: DORZOLAMIDE HCL 2% OPH SOLN 10 ML BTL OP SCH (08:35)
[2016-11-18 08:53] LABS: BUN/CREATININE RATIO 21.4 (10-20); CALCIUM 9.9 mg/dl (8.5-10.1); CREATININE 1.2 mg/dl (0.60-1.40); MAGNESIUM 2.1 mg/dl (1.8-2.4); POTASSIUM 4.2 mmol/L (3.5-5.1)
[2016-11-18] MEDS: CHOLECALCIFEROL 1000 INTER.UNIT TAB PO SCH (08:54)
[2016-11-18] MEDS ORDERED: FUROSEMIDE 20 MG TAB PO SCH (09:00)
[2016-11-18] MEDS ORDERED: LSX20 PO (11:24)
--- NOTE | 2016-11-18 11:25 | Discharge Instructions ---
Discharge Instructions Date of Service Nov 18, 2016. Admission Reason for Admission: SOB Discharge Discharge Diagnosis / Problem: sob , acute CHF with preserved ef Discharge Goals Goal(s): Decrease discomfort Activity Recommendations Activity Limitations: resume your previous activity . Instructions / Follow-Up Instructions / Follow-Up FOLLOWUP WITH FAMILY DOCTOR ON Nov AT 11:05AM FOLLOWUP WITH CARDIOLOGY SCHEDULED. BLOOD PRESSURE FOLLOWUP WITH FAMILY DOCTOR AND CARDIOLOGY LAB: BMP WITH MG LEVELS IN ONE WEEK AND FOLLOW RESULTS WITH FAMILY DOCTOR/ CARDIOLOGY Call your Primary Care doctor if any of the following symptoms or problems start or get worse: * Shortness of breath or difficulty breathing * Wake up at night short of breath * Chest pain * Cough * Swelling of your hands, feet, or legs * More fatigued or tired with your normal activity * Palpitations - sudden fast heart beats WEIGHT * Weigh yourself every morning after using the bathroom. * Use the same scale. * Wear the same amount of clothing. * Write your weight down on a chart. * Call your Primary Care doctor if you gain more than 2-3 pounds in 1-2 days. MEDICATIONS * Use this discharge instruction sheet for medication instructions. * Take your medications at the time your doctor ordered. * Do not skip a dose of your medicines. * If you miss a dose of medicine, take it as soon as possible, but DO NOT DOUBLE A DOSE. * Read your medicine information when you get home. * Know all of the side effects of your medicine. If in doubt, ask your pharmacist * Call your Primary Care doctor's office if you have any side effects. * Be sure all of your doctors know what medicine and herbs you take (including cold, flu, and herbal medicine). Take the following with you to your follow-up doctor appointments: * Weight Chart * Medication List * List of questions Do not drink excessive alcohol, beer or wine. Current Hospital Diet Patient's current hospital diet: Diabetes Type 2 Diet, Low Sodium Diet (2gm Na) Discharge Diet Recommended Diet: AHA Diet (Heart Healthy), Diabetes Type 2 Diet Pending Studies Studies pending at discharge: no Laboratory Results Hemoglobin A1c Test 11/17/16 05:26 Range/Units Estimated Average Glucose 134 mg/dl Hemoglobin A1c 6.3 H 4.5-5.6 % Medical Emergencies . Who to Call and When: Call 911 or go to the Emergency Room if: * If at any time you feel your situation is an emergency * You have tightness or pain in your chest that does not go away with rest or Nitroglycerin * You are very short of breath even with rest . Non-Emergent Contact Non-Emergency issues call your: Primary Care Provider . . "Provider Documentation" section prepared by Tomas Edwards. . VTE Core Measure Inpt VTE Proph given/why not?: Warfarin (Coumadin)
--- NOTE | 2016-11-18 11:37 | PROGRESS NOTE ---
DATE: 11/18/2016 FOLLOWUP VISIT SUBJECTIVE: The patient is an 86-year-old male who presented with heart failure on the basis of diastolic dysfunction and some atrial fibrillation. He was diuresed and markedly improved. He has been walking in the hallways. He is currently in a sinus mechanism with ventricular pacing. OBJECTIVE: VITAL SIGNS: Blood pressure is 130/70, pulse is regular at 80 beats per minute. He is afebrile. HEENT: He is normocephalic. Pupils are equal and reactive to light. Extraocular muscles are intact bilaterally. NECK: The neck veins are flat. Carotids have good upstrokes bilaterally without bruits. Thyroid is nonpalpable. RESPIRATORY: Breath sounds equal bilaterally and clear to auscultation. CARDIOVASCULAR: Heart has a regular rhythm. No cardiac rubs or murmurs. GASTROINTESTINAL: Abdomen is soft and nontender without organomegaly. EXTREMITIES: Free of edema, digit clubbing, or cyanosis. NEUROLOGIC: Grossly intact. SKIN: Warm to touch. LYMPH NODES: Negative to palpation. LABORATORY DATA: Potassium is 4.2 and creatinine is 1.2. IMPRESSION: 1. Congestive heart failure on the basis of diastolic dysfunction. 2. Status post aortic valve replacement and coronary artery bypass surgery. 3. Chronic renal insufficiency. 4. Paroxysmal atrial fibrillation. RECOMMENDATIONS: The patient is clinically doing better and we will discharge him on a low dose of Lasix at 20 mg daily. I plan early followup for this patient through our clinic next week.
[2016-11-18 11:39] VITALS: BP 138/80; PULSE 77; TEMP 36.7; O2SAT 97
[2016-11-18 12:31] VITALS: BP 138/80; PULSE 77; TEMP 36.7; O2SAT 97
[2016-11-18] MEDS ORDERED: WARFARIN SOD 2.5 MG TAB PO SCH (16:00)
--- NOTE | 2016-11-18 17:24 | Progress Note ---
Internal Med Progress Note Date of Service: Nov 18, 2016. Provider Documentation: SUBJECTIVE: sitting on the chair comfortably sob resolved ambulating without sob ok for discharge OBJECTIVE: Vital Signs-as noted below Exam: General-alert and oriented. Not in distress ENT-normal hearing Neck-no neck masses Lungs-cta b/l no wheezing no crackles present Heart-s1 and s2 heard regular rhythm, no murmurs Abdomen-soft bowel sounds present non tender no distension Extremities no edema present no erythema Neuro-alert and oriented moves extremities Lab data as noted below. ASSESSMENT & PLAN: This is an 86yo male with a PMH of HTN, A fib (on coumadin), CAD (s/p CABG x 4) , Aortic stenosis (s/p AVR with prosthetic valve), pacemaker, DM II, h/o DVTs (s /p IVC placement) who presents with elevated blood pressure and an irregular heart beat. Shortness of breath: Likely 2/2 decompensated CHF, A Fib improved Atrial fibrillation (on coumadin): Admission EKG shows A fib. Spontaneously resolved. to continue home dose of sotalol on warfarin -INR therapeutic at 2.4 stable echo ok f/u with pcp and Coumadin clinic Decompensated CHF with preserved EF: SOB, + weight gain Previous echo (02/16) with EF of 50-55% CXR with cardiomegaly, small L pleural effusion, no mina pulm edema on iv lasix cardiology on board improved d/dionicio o po lasix 20mg daily close f/u with cardiology and pcp Malodorous urine/flank pain: asymptomatic CAD (s/p CABG x 4): no chest pain EKG with a fib, RBBB, L fascicular block Ce negative DM II: metformin on hold hba1c 6.3 on iss d/c on home med HTN: on sotalol f/u with pc and cardiology. HLD: Statins contraindicated on colestipol Glaucoma: Continue home eye drops DVT Ppx: on warfarin . discharged home Vital Signs: Date Time Temp Pulse Resp B/P (MAP) Pulse Ox O2 Delivery O2 Flow Rate FiO2 11/18/16 12:31 36.7 77 16 97 Room Air 11/18/16 11:39 36.7 77 16 138/80 (99) 97 Room Air 11/18/16 08:00 Room Air 11/18/16 07:53 36.5 90 18 137/73 (94) 98 11/18/16 04:00 Room Air 11/18/16 03:36 36.6 83 20 134/79 (97) 99 Room Air 11/18/16 01:59 98 109/69 (82) 11/17/16 23:59 96 Room Air 11/17/16 23:26 36.8 74 16 133/71 (91) 96 Room Air 11/17/16 20:00 98 Room Air 11/17/16 19:23 36.7 89 20 137/86 (103) 98 Room Air Lab Results: Results Past 24 Hours Test 11/17/16 20:18 11/18/16 07:39 11/18/16 08:04 11/18/16 11:53 Range/Units Bedside Glucose 116 142 88 70-99 mg/dl Sodium Level 134 136-145 mmol/L Potassium Level 4.2 3.5-5.1 mmol/L Chloride Level 100 98-107 mmol/L Carbon Dioxide Level 28 21-32 mmol/L Anion Gap 6.0 3-11 mmol/L Blood Urea Nitrogen 26 7-18 mg/dl Creatinine 1.20 0.60-1.40 mg/dl Est Creatinine Clear Calc Drug Dose 49.4 ml/min Estimated GFR () 62.2 Estimated GFR (Non- 53.7 BUN/Creatinine Ratio 21.4 10-20 Random Glucose 142 70-99 mg/dl Calcium Level 9.9 8.5-10.1 mg/dl Magnesium Level 2.1 1.8-2.4 mg/dl
--- NOTE | 2016-11-18 17:40 | Discharge Summary ---
Discharge Summary Date of Service Nov 18, 2016. Discharge Summary Admission Date: Nov 17, 2016 at 09:56 Discharge Date: Nov 18, 2016 Discharge Disposition: Home Principal Diagnosis: ACUTE CHF WITH PRESERVED EF Secondary Diagnoses/Problems: HTN, A fib (on coumadin), CAD (s/p CABG x 4), Aortic stenosis (s/p AVR with prosthetic valve), pacemaker, DM II, h/o DVTs (s/p IVC placement) Procedures: CXR: 1. Cardiomegaly. No mina pulmonary edema. 2. Possible scarring or atelectasis at the left lung base, although underlying consolidation cannot be excluded. 3. Small left pleural effusion. ECHO: The left ventricle is normal in size. * Ejection Fraction = 50-55%. * The right ventricular systolic function is normal. * The left atrium is moderately dilated. * The right atrium is moderately dilated. * The gradient is normal for this prosthetic aortic valve. Consultations: CARDIOLOGY Medication Reconciliation New Medications: Furosemide (Furosemide) 20 Mg Tab 20 MG PO QAM, #30 TAB 2 Refills Continued Medications: Brinzolamide Oph (Azopt Oph) 1 % Yasemin 1 DROP OP BID, BTL Cholecalciferol (Vitamin D3) 1,000 Unit Tab 1000 INTER.UNIT PO DAILY for 90 Days, TAB 3 Refills Colestipol Hcl (Colestid) 1 Gm Tab 4 GM PO BID, TAB Desloratadine (Clarinex) 5 Mg Tab 5 MG PO QAM, TAB Dorzolamide Hcl (Trusopt Oph) 2 % Mallika 1 DROPS OP BID, #10 ML 3 Refills Latanoprost (Xalatan 0.005% Oph Mallika) 0.005 % Mallika 1 DROPS OP HS, ML 3 Refills Levothyroxine Sodium (Synthroid) 75 Mcg Tab 75 MCG PO QAM Metformin Hcl (Glucophage) 500 Mg Tab 500 MG PO BID, TAB Sotalol HCl (Sotalol HCl) 80 Mg Tab 80 MG PO BID Timolol Maleate (Timolol Gfs 0.5% (Generic For Timoptic-Xe)) 74 Drops/5 Ml Soln 1 DROP OPB BID Warfarin Sod (Coumadin) 2.5 Mg Tab 3 TAB PO SuTuWeThSa, TAB Warfarin Sod (Coumadin) 2.5 Mg Tab 4 TAB PO MoFr, TAB Admission Information HPI (per Admitting provider): This is an 86yo male with a PMH of HTN, A fib (on coumadin), CAD (s/p CABG x 4) , Aortic stenosis (s/p AVR with prosthetic valve), pacemaker, DM II, h/o DVTs (s /p IVC placement) who presents with elevated blood pressure and an irregular heart beat. Patient reports taking his BP at home today with elevated readings of 200/100 and 190/100. States that he also noticed an "irregular heart beat" that started around the same time. Associated symptoms include dyspnea on exertion and some weight gain over the past week. At baseline, patient is able to ambulate by cane without any SOB but has noticed increased dyspnea in the past few weeks. Also states that he ate out for a few meals last week and noticed a ~5 pound weight gain and some swelling in his ankles that has since resolved. Denies any lightheadedness, CP, orthopnea, PND, abd pain. Does endorse strong smelling urine and some flank pain over the past few days. No fever, chills, dysuria, hematuria. Patient recently established care with Dr. Arellano and was seen in October. Most recent echo performed in 02/16 showing normal LV and an EF of 50-55%. Per chart review, underwent a Michael 2 Maze procedure for A fib in 2012. In July of 2015, patient underwent cardioversion for atrial flutter and was started on sotalol. Has continue to take sotalol without any more symptomatic events. Physical Exam (per Admitting): General Appearance: WD/WN, no apparent distress Head: normocephalic, atraumatic Eyes: normal inspection, PERRL ENT: hearing grossly normal Neck: supple, no adenopathy, thyroid normal, no JVD, trachea midline Respiratory/Chest: chest non-tender, no respiratory distress, no accessory muscle use, + crackles (Faint crackles at bases. Otherwise clear to auscultation. ) Cardiovascular: regular rate, rhythm, no murmur, normal peripheral pulses Abdomen/GI: normal bowel sounds, non tender, soft, no organomegaly Back: normal inspection, no CVA tenderness Extremities/Musculoskelatal: normal inspection, no calf tenderness, normal capillary refill, no pedal edema Neurologic/Psych: alert, normal mood/affect, oriented x 3 Skin: normal color, warm/dry, no rash Hospital Course This is an 86yo male with a PMH of HTN, A fib (on coumadin), CAD (s/p CABG x 4) , Aortic stenosis (s/p AVR with prosthetic valve), pacemaker, DM II, h/o DVTs (s /p IVC placement) who presents with elevated blood pressure and an irregular heart beat. Shortness of breath: Likely 2/2 decompensated CHF, A Fib improved Atrial fibrillation (on coumadin): Admission EKG shows A fib. Spontaneously resolved. to continue home dose of sotalol on warfarin -INR therapeutic at 2.4 stable echo ok f/u with pcp and Coumadin clinic Decompensated CHF with preserved EF: SOB, + weight gain Previous echo (02/16) with EF of 50-55% CXR with cardiomegaly, small L pleural effusion, no mina pulm edema on iv lasix cardiology on board improved d/dionicio o po lasix 20mg daily close f/u with cardiology and pcp Malodorous urine/flank pain: asymptomatic CAD (s/p CABG x 4): no chest pain EKG with a fib, RBBB, L fascicular block Ce negative DM II: metformin on hold hba1c 6.3 on iss d/c on home med HTN: on sotalol f/u with pc and cardiology. HLD: Statins contraindicated on colestipol Glaucoma: Continue home eye drops DVT Ppx: on warfarin . discharged home Total time spent on discharge = 35MINUTES This includes examination of the patient, discharge planning, medication reconciliation, and communication with other providers. Discharge Instructions Discharge Instructions Date of Service Nov 18, 2016. Admission Reason for Admission: SOB Discharge Discharge Diagnosis / Problem: sob , acute CHF with preserved ef Discharge Goals Goal(s): Decrease discomfort Activity Recommendations Activity Limitations: resume your previous activity . Instructions / Follow-Up Instructions / Follow-Up FOLLOWUP WITH FAMILY DOCTOR ON Nov AT 11:05AM FOLLOWUP WITH CARDIOLOGY SCHEDULED. BLOOD PRESSURE FOLLOWUP WITH FAMILY DOCTOR AND CARDIOLOGY LAB: BMP WITH MG LEVELS IN ONE WEEK AND FOLLOW RESULTS WITH FAMILY DOCTOR/ CARDIOLOGY Call your Primary Care doctor if any of the following symptoms or problems start or get worse: * Shortness of breath or difficulty breathing * Wake up at night short of breath * Chest pain * Cough * Swelling of your hands, feet, or legs * More fatigued or tired with your normal activity * Palpitations - sudden fast heart beats WEIGHT * Weigh yourself every morning after using the bathroom. * Use the same scale. * Wear the same amount of clothing. * Write your weight down on a chart. * Call your Primary Care doctor if you gain more than 2-3 pounds in 1-2 days. MEDICATIONS * Use this discharge instruction sheet for medication instructions. * Take your medications at the time your doctor ordered. * Do not skip a dose of your medicines. * If you miss a dose of medicine, take it as soon as possible, but DO NOT DOUBLE A DOSE. * Read your medicine information when you get home. * Know all of the side effects of your medicine. If in doubt, ask your pharmacist * Call your Primary Care doctor's office if you have any side effects. * Be sure all of your doctors know what medicine and herbs you take (including cold, flu, and herbal medicine). Take the following with you to your follow-up doctor appointments: * Weight Chart * Medication List * List of questions Do not drink excessive alcohol, beer or wine. Current Hospital Diet Patient's current hospital diet: Diabetes Type 2 Diet, Low Sodium Diet (2gm Na) Discharge Diet Recommended Diet: AHA Diet (Heart Healthy), Diabetes Type 2 Diet Pending Studies Studies pending at discharge: no Laboratory Results Hemoglobin A1c Test 11/17/16 05:26 Range/Units Estimated Average Glucose 134 mg/dl Hemoglobin A1c 6.3 H 4.5-5.6 % Medical Emergencies . Who to Call and When: Call 911 or go to the Emergency Room if: * If at any time you feel your situation is an emergency * You have tightness or pain in your chest that does not go away with rest or Nitroglycerin * You are very short of breath even with rest . Non-Emergent Contact Non-Emergency issues call your: Primary Care Provider . . "Provider Documentation" section prepared by Tomas Edwards. . VTE Core Measure Inpt VTE Proph given/why not?: Warfarin (Coumadin)
[2016-11-20] MEDS ORDERED: WARFARIN SOD 2.5 MG TAB PO SCH (16:00)
== END 2016-11-18 13:14 | disposition home or self-care (01) | DRG 293 ==
LOC: C.EDB 14:06 → C.MED 18:56 → ENRESERV 19:26 → OBSVTOIN 11-17 09:56
PROVIDERS: ADMIT Internal Medicine; ATTEND Internal Medicine
DX: I50.43 Acute on chronic combined systolic (congestive) and diastolic (congestive) heart failure (principal); I25.10 Atherosclerotic heart disease of native coronary artery without angina pectoris; I48.91 Unspecified atrial fibrillation; E78.5 Hyperlipidemia, unspecified; Z66 Do not resuscitate; I12.9 Hypertensive chronic kidney disease with stage 1 through stage 4 chronic kidney disease, or unspecified chronic kidney disease; N18.9 Chronic kidney disease, unspecified; I35.0 Nonrheumatic aortic (valve) stenosis; E11.9 Type 2 diabetes mellitus without complications; R82.99 Other abnormal findings in urine; R10.9 Unspecified abdominal pain; H40.9 Unspecified glaucoma; I45.10 Unspecified right bundle-branch block; I44.4 Left anterior fascicular block; Z95.1 Presence of aortocoronary bypass graft; Z95.828 Presence of other vascular implants and grafts; Z95.2 Presence of prosthetic heart valve; Z86.711 Personal history of pulmonary embolism; Z86.718 Personal history of other venous thrombosis and embolism; Z95.0 Presence of cardiac pacemaker; Z79.899 Other long term (current) drug therapy; Z79.01 Long term (current) use of anticoagulants; Z79.84 Long term (current) use of oral hypoglycemic drugs

== ENCOUNTER 2018-04-06 14:29 | Inpatient (IN) ==
--- NOTE | 2018-04-06 15:53 | XRay Report ---
XR chest 1V portable CLINICAL HISTORY: 87 years-old Male presenting with sob. TECHNIQUE: Portable upright AP view of the chest was obtained. COMPARISON: 11/16/2016. FINDINGS: Left subclavian pacer with single lead to the right ventricular apex. Median sternotomy wires with br eakage of the most inferior wire as on prior exam. Prosthetic aortic valve. Atherosclerosis of the ao rtic arch. Cardiac silhouette mildly enlarged. Pulmonary vascular prominence with significant central and bibasilar predominant added density. Bronchial wall thickening. Trace bilateral pleural effusion s, left greater than right. No pneumothorax. Degenerative changes of the thoracic spine. Upper abdome n normal. IMPRESSION: 1. Mild cardiomegaly with volume overload/congestive change and mild to moderate pulmonary edema. 2. Suspected trace bilateral pleural effusions. Electronically signed by: Andrea Navarrete M.D. 04/06/2018 3:52 PM
[2018-04-06 15:59] LABS: Basophils # (auto) 0.01 K/uL (0-0.2); Basophils % (auto) 0.1 %; Eosinophils # (auto) 0.07 K/uL (0-0.5); Eosinophils % (auto) 0.7 %; Hematocrit (blood only) 42.8 % (42-52); Hemoglobin 15.3 g/dL (14.0-18.0); Immature Granulocytes # (auto) 0.03 K/uL (0.00-0.02); Immature Granulocytes % (auto) 0.3 %; Lymphocytes # (auto) 1.27 K/uL (1.2-3.4); Lymphocytes % (auto) 12.9 %; Mean Corpuscular Hgb Conc 35.7 g/dL (32-36); Mean Corpuscular Volume 96.6 fL (80-100); Mean Platelet Volume 9.9 fL (7.4-10.4); Monocytes # (auto) 0.94 K/uL (0.11-0.59); Monocytes % (auto) 9.5 %; Neutrophils # (auto) 7.55 K/uL (1.4-6.5); Neutrophils % (auto) 76.5 %; Platelet Count 127 K/uL (130-400); RDW Coefficient of Variation 14.2 % (11.5-14.5); RDW Standard Deviation 50.2 fL (36.4-46.3); Red Blood Count 4.43 M/uL (4.7-6.1); White Blood Count 9.87 K/uL (4.8-10.8)
[2018-04-06 16:12] LABS: INR 2.1 (0.9-1.1); Prothrombin Time 20.6 Seconds (9.0-12.0)
[2018-04-06 16:16] LABS: Alanine Aminotransferase 25 U/L (12-78); Albumin Level 3.7 gm/dl (3.4-5.0); Aspartate Aminotransferase 22 U/L (15-37); BUN Creatinine Ratio 18.8 (10-20); Blood Urea Nitrogen 28 mg/dl (7-18); Calcium 9.6 mg/dl (8.5-10.1); Carbon Dioxide 22 mmol/L (21-32); Chloride 93 mmol/L (98-107); Est GFR (African American) 47.2; Est GFR (Non-African American) 40.7; Glucose 120 mg/dl (70-99); Magnesium 2.1 mg/dl (1.8-2.4); Potassium 4.2 mmol/L (3.5-5.1); Sodium 126 mmol/L (136-145)
[2018-04-06 16:21] LABS: Alkaline Phosphatase 126 U/L (45-117); Bilirubin,Total 1.2 mg/dl (0.2-1); Globulin 3.6 gm/dl (2.5-4.0); NT Pro B Type Natriuretic Pept 5852 pg/ml (0-1800); Total Protein 7.3 gm/dl (6.4-8.2); Troponin I < 0.015 ng/ml (0-0.045)
[2018-04-06 16:46] LABS: Appearance Urine Clear (Clear); Bilirubin Urine Negative (Negative); Color Urine Yellow; Glucose Urine UA Negative (Negative); Ketones Urine Negative (Negative); Leukocyte Esterase Urine Negative (Negative); Nitrite Urine Negative (Negative); Protein Urine Negative (Negative); Specific Gravity Urine 1.011 (1.000-1.030); Urobilinogen Urine Negative (Negative)
[2018-04-06] MEDS ORDERED: FUROSEMIDE 40 MG/4 ML VIAL IV STA (18:10)
[2018-04-06 21:14] LABS: iSTAT Hemoglobin 15.3 g/dl (14.0-18.0); iSTAT Ionized Calcium 1.17 mmol/l (1.12-1.32)
--- NOTE | 2018-04-06 21:15 | Emergency Department Note ---
Entered by Ac Alonso acting as a scribe for Tania Verma DO History of Present Illness General Chief complaint: Shortness of Breath/Dyspnea Stated complaint: SHORTNESS OF BREATH, CHF Time Seen by Provider: 04/06/18 14:38 Source: patient and family (daughter) History of Present Illness Onset (ago): day(s) (a few days ago) Location: chest Pain Consistency: + constant Quality: + other (SOB) Relieved By: + other (inhaler) Exacerbated By: + other (exertion) Associated symptoms: + other (Positive for anxiety, sleep deprivation, a decreased appetite, nausea, a cough, chills and worsening swelling in the feet. Negative for fever, urinary symptoms, and changes in his bowels.) The patient is an 87 year old male with a history of CHF who presents to the emergency department with complaints of constant SOB beginning a few days ago. Per daughter, the patient has been increasingly anxious and sleep deprived for the last month. She states that the patients nutrition has also been getting worse. The patient notes that he has been SOB with exertion over the last few days. He reports that his symptoms are not as bad today as they were a few days ago. He also complains of a decreased appetite, nausea, a cough, chills, and worsening swelling in the feet. He states that he has had some family stressors recently that might be causing his anxiety. He denies any fever, urinary symptoms, and changes in his bowels. He notes that he has an inhaler at home which helps with his SOB occasionally. He reports that he also has history of type II diabetes. Home Medications Home Medications Medication Instructions Recorded Confirmed Type albuterol sulfate 2.5 mg INHALATION DIRECTED PRN 04/06/18 04/06/18 History albuterol sulfate [Proventil HFA] 2 puff INHALATION Q6H PRN 04/06/18 04/06/18 History amoxicillin 2,000 mg PO ONCE PRN 04/06/18 04/06/18 History brinzolamide [Azopt] 1 drp OPB BID 04/06/18 04/06/18 History cholecalciferol (vitamin D3) 2,000 unit PO QAM 04/06/18 04/06/18 History [Vitamin D3] colestipol 8 g PO QAM 04/06/18 04/06/18 History desloratadine 5 mg PO QAM 04/06/18 04/06/18 History furosemide [Lasix] 20 mg PO DAILY 04/06/18 04/06/18 History latanoprost 1 drp OPB HS 04/06/18 04/06/18 History levothyroxine 75 mcg PO DAILY 04/06/18 04/06/18 History metformin 500 mg PO BIDM 04/06/18 04/06/18 History metronidazole 1 applic TOPICAL BID 04/06/18 04/06/18 History sotalol 80 mg PO AMPM 04/06/18 04/06/18 History timolol maleate 1 drp OPB BID 04/06/18 04/06/18 History tiotropium bromide [Spiriva with 1 cap INHALATION DAILY 04/06/18 04/06/18 History HandiHaler] warfarin [Coumadin] 5 mg PO 2XWK 04/06/18 04/06/18 History warfarin [Coumadin] 7.5 mg PO 5XWK 04/06/18 04/06/18 History Allergies Allergy/AdvReac Type Severity Reaction Status Date / Time aspirin Allergy Mild SWELLING Verified 04/06/18 16:14 UPPER LIP oxycodone Allergy Unknown PER Verified 04/06/18 16:43 [facility] LIST pravastatin [From Pravachol] AdvReac Intermediate Muscle Pain Verified 04/06/18 16:43 rosuvastatin [From Crestor] AdvReac Intermediate Muscle Pain Verified 04/06/18 16:43 simvastatin [From Zocor] AdvReac Intermediate Muscle Pain Verified 04/06/18 16: 43 Worgkys-Gwz-Keh Reductase AdvReac Intermediate Muscle Pain Verified 04/06/18 16: 43 Inhibitor Past Med/Surg History Medical History CHF (congestive heart failure) (Chronic) HTN (hypertension) (Chronic) Diabetes (Chronic) Pacemaker (Chronic) Atrial fibrillation (Chronic) HLD (hyperlipidemia) (Chronic) Glaucoma (Chronic) 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 and A total of 10 systems reviewed and were otherwise negative Physical Exam Vital Signs Vital Signs - 24 hr 04/06/18 17:34 04/06/18 18:50 04/06/18 20:50 Temperature Temperature Source Pulse Rate Pulse Rate [Exercises] 101 H Pulse Rate [Left Finger] 97 H 92 H 100 H Pulse Rhythm [Left Finger] Regular Pulse Strength [Left Finger] Normal Respiratory Rate 22 18 20 Respiratory Rate [Exercises] 22 Respiratory Effort / Characteristics Non-Labored Spontaneous Respiratory Depth Normal Respiratory Pattern Regular Blood Pressure Blood Pressure [Left Arm] 123/76 122/83 117/71 Blood Pressure [Right Arm] Blood Pressure Mean [Left Arm] 91 96 86 Blood Pressure Mean [Right Arm] Blood Pressure Position [Left Arm] Sitting Blood Pressure Position [Right Arm] Pulse Oximetry 100 99 95 Pulse Oximetry [Exercises] 98 Oxygen Delivery Method Room Air Room Air Room Air 04/06/18 22:13 04/06/18 23:18 04/07/18 04:40 Temperature 36.4 C L Temperature Source Oral Pulse Rate 87 Pulse Rate [Exercises] Pulse Rate [Left Finger] 92 H 83 Pulse Rhythm [Left Finger] Pulse Strength [Left Finger] Respiratory Rate 15 20 16 Respiratory Rate [Exercises] Respiratory Effort / Characteristics Non-Labored Respiratory Depth Normal Respiratory Pattern Regular Blood Pressure 122/74 Blood Pressure [Left Arm] 119/75 Blood Pressure [Right Arm] 122/71 Blood Pressure Mean [Left Arm] 89 Blood Pressure Mean [Right Arm] 88 Blood Pressure Position [Left Arm] Blood Pressure Position [Right Arm] Lying Pulse Oximetry 99 98 94 Pulse Oximetry [Exercises] Oxygen Delivery Method Room Air Room Air Room Air 04/07/18 08:18 04/07/18 12:07 04/07/18 15:46 Temperature 36.7 C 36.8 C 36.5 C Temperature Source Oral Oral Oral Pulse Rate Pulse Rate [Exercises] Pulse Rate [Left Finger] 78 74 80 Pulse Rhythm [Left Finger] Pulse Strength [Left Finger] Respiratory Rate 19 18 Respiratory Rate [Exercises] Respiratory Effort / Characteristics Respiratory Depth Respiratory Pattern Blood Pressure Blood Pressure [Left Arm] Blood Pressure [Right Arm] 104/61 128/69 128/68 Blood Pressure Mean [Left Arm] Blood Pressure Mean [Right Arm] 75 88 88 Blood Pressure Position [Left Arm] Blood Pressure Position [Right Arm] Lying Sitting Pulse Oximetry 96 98 92 Pulse Oximetry [Exercises] Oxygen Delivery Method Room Air Room Air GENERAL: alert, well appearing, well nourished, no distress, non-toxic EYE EXAM: normal conjunctiva, PERRL and EOM's grossly intact OROPHARYNX: no exudate, no erythema, lips, buccal mucosa, and tongue normal and mucous membranes are dry. NECK: supple, no nuchal rigidity, no adenopathy, non-tender LUNGS: Clear to auscultation. Normal chest wall mechanics. No wheezes, rhonchi, and rales. HEART: no murmurs, S1 normal and S2 normal ABDOMEN: abdomen soft, non-tender, normo-active bowel sounds, no masses, no rebound or guarding. BACK: Back is symmetrical on inspection and there is no deformity, no midline tenderness, no CVA tenderness. SKIN: no rashes and no bruising UPPER EXTREMITIES: upper extremities are grossly normal. Distal aspect of both extremities cool to touch; however, normal cap refill and distal pulses. LOWER EXTREMITIES: Bilateral lower extremity edema, right greater than left. Distal aspect of both extremities cool to touch; however, normal cap refill and distal pulses. NEURO EXAM: Normal sensorium, cranial nerves II-XII grossly intact, normal speech, no gross weakness of arms, no gross weakness of legs. Course 1454: Past medical records reviewed. The patient was evaluated in room C8, and a complete history and physical examination were performed. 0: I reevaluated and updated the patient. We obtained his ambulatory pulse oxygen and his saturation stayed at 98%. He had some mildly increased work of breathing during ambulation. 1805: I discussed the patients case with [facility]. He recommends giving the patient 40mg of IV Lasix and to see how he tolerates it. 1819: I rechecked the patient. 2007: I reevaluated and updated the patient. He is starting to urinate after receiving Lasix. 2100: Extensive discussion with patient and family at bedside. Patient had not noticed any improvement in his symptoms since the addition of Lasix. Family is not comfortable with him returning home also given worsening symptoms and difficulty managing this at home until he can follow-up next week. Consultations Consultation #1: I discussed the patients case with Dr. Dayton Brambila [facility]. He recommends giving the patient 40mg of IV Lasix and to see how he tolerates it. If improved they can follow him up in the office on Sunday. Time: 18:06 Administered Medications Brinzolamide (Azopt) 1 drops OPB BID [facility] Stop: 05/07/18 08:59 Last Admin: 04/07/18 07:52 Dose: 1 drops Colestipol HCl (Colestid) 8 gm PO DAILY@1000 [facility] Stop: 05/07/18 09:59 Last Admin: 04/07/18 15:43 Dose: 8 gm Furosemide (Lasix) 20 mg PO QAM [facility] Stop: 05/07/18 08:59 Last Admin: 04/07/18 09:41 Dose: 20 mg Insulin Aspart (Novolog Flexpen) 0 units SC ACHS [facility] Stop: 05/07/18 11:29 Last Admin: 04/07/18 12:51 Dose: Not Given Levothyroxine Sodium (Synthroid) 88 mcg PO DAILYBB [facility] Stop: 05/07/18 06:29 Last Admin: 04/07/18 06:04 Dose: 88 mcg Metronidazole (Metrogel) 1 appln TOP BID [facility] Stop: 04/17/18 08:59 Last Admin: 04/07/18 12:57 Dose: Not Given Miscellaneous (Order Awaiting Action) 1 ea N/A DAILY [facility] Stop: 05/07/18 08:59 Last Admin: 04/07/18 11:54 Dose: Not Given Timolol Maleate (Timoptic 0.25% Oph) 1 drops OPB BID [facility] Stop: 05/07/18 08:59 Last Admin: 04/07/18 07:52 Dose: 1 drops Tiotropium [place] (Spiriva) 1 puffs INH DAILY [facility] Stop: 05/07/18 08:59 Last Admin: 04/07/18 07:50 Dose: 1 puffs Warfarin Sodium (Coumadin) 7.5 mg PO [id number] [facility] Stop: 05/07/18 15:59 Last Admin: 04/07/18 15:43 Dose: 7.5 mg Discontinued Medications Furosemide (Lasix) 40 mg IV NOW STA Stop: 04/06/18 18:11 Last Admin: 04/06/18 18:47 Dose: 40 mg Furosemide (Lasix) 40 mg IV ONE ONE Stop: 04/07/18 08:01 Last Admin: 04/07/18 09:37 Dose: Not Given Insulin Aspart (Novolog Flexpen) 0 units SC ACHS [facility] Stop: 05/07/18 00:29 Last Admin: 04/07/18 07:53 Dose: Not Given Admin: 04/07/18 00:31 Dose: Not Given Sotalol HCl (Betapace) 80 mg PO BID [facility] Stop: 05/06/18 23:34 Last Admin: 04/07/18 07:51 Dose: 80 mg Admin: 04/07/18 00:51 Dose: Not Given Medical Decision Making Differential Diagnosis Differential diagnosis: Etiologies such as infections, reactive airway disease, COPD, pneumonia, pleural effusion, pulmonary edema, ARDS, pneumothorax, CHF, cardiac ischemia, cardiac tamponade, dysrhythmia, anemia, pulmonary embolism, musculoskeletal, gastrointestinal process, as well as others were entertained. Medical Records Attestation: I reviewed the patient's medical records. Home Medications Current Medication List: was personally reviewed by me Laboratory Data Attestation: I reviewed the patient's lab results. Result diagrams: 04/07/18 05:47 04/07/18 05:47 Lab Results 04/06/18 04/06/18 04/06/18 Range/Units 15:42 15:42 15:42 WBC 9.87 (4.8-10.8) K/uL RBC 4.43 L (4.7-6.1) M/uL Hgb 15.3 (14.0-18.0) g/dL POC Hgb (14.0-18.0) g/dl Hct 42.8 (42-52) % POC Hct (42-52) % MCV 96.6 (80-100) fL MCH 34.5 H (25-34) pg MCHC 35.7 (32-36) g/dL RDW Std Deviation 50.2 H (36.4-46.3) fL RDW Coeff of Aida 14.2 (11.5-14.5) % Plt Count 127 L (130-400) K/uL MPV 9.9 (7.4-10.4) fL Immature Gran % (Auto) 0.3 % Neut % (Auto) 76.5 % Lymph % (Auto) 12.9 % [place] % (Auto) 9.5 % Eos % (Auto) 0.7 % Baso % (Auto) 0.1 % Immature Gran # (Auto) 0.03 H (0.00-0.02) K/uL Neut # (Auto) 7.55 H (1.4-6.5) K/uL Lymph # (Auto) 1.27 (1.2-3.4) K/uL [place] # (Auto) 0.94 H (0.11-0.59) K/uL Eos # (Auto) 0.07 (0-0.5) K/uL Baso # (Auto) 0.01 (0-0.2) K/uL Platelet Estimate (Normal) RBC Morphology PT 20.6 H (9.0-12.0) Seconds INR 2.1 H (0.9-1.1) POC Sodium (135-144) mEq/L Sodium 126 L (136-145) mmol/L POC Potassium (3.3-5.0) mEq/L Potassium 4.2 (3.5-5.1) mmol/L POC Chloride (101-112) mEq/L Chloride 93 L (98-107) mmol/L Carbon Dioxide 22 (21-32) mmol/L POC Total CO2 (24-31) mEq/l Anion Gap 11.0 (3-11) POC Anion Gap (16-25) mmol/L POC BUN (7-18) mg/dl BUN 28 H (7-18) mg/dl Creatinine 1.50 H (0.6-1.4) mg/dl POC Creatinine (0.6-1.3) mg/dl Est Cr Clr Drug Dosing Not Reportable Est GFR ( Amer) 47.2 Est GFR (Non-Af Amer) 40.7 BUN/Creatinine Ratio 18.8 (10-20) Glucose 120 H (70-99) mg/dl POC Glucose (70-99) POC Glucose (other) (70-99) mg/dl Osmolality (280-300) mOsm/kg Calcium 9.6 (8.5-10.1) mg/dl POC Ioniz Calcium [place] (1.12-1.32) mmol/l Magnesium 2.1 (1.8-2.4) mg/dl Total Bilirubin 1.2 H (0.2-1) mg/dl AST 22 (15-37) U/L ALT 25 (12-78) U/L Alkaline Phosphatase 126 H (45-117) U/L Ammonia (11-32) umol/L Troponin I < 0.015 (0-0.045) ng/ml NT-Pro-B Natriuret Pep 5852 H (0-1800) pg/ml Total Protein 7.3 (6.4-8.2) gm/dl Albumin 3.7 (3.4-5.0) gm/dl Globulin 3.6 (2.5-4.0) gm/dl Albumin/Globulin Ratio 1.0 (0.9-2) Lipase 156 (73-393) U/L TSH (0.300-4.500) uIu/ml Free T4 (0.8-1.6) ng/dl Total T3 (0.60-1.81) ng/ml Urine Color Urine Appearance (Clear) Urine pH (4.5-7.5) Ur Specific [place] (1.000-1.030) Urine Protein (Negative) Urine Glucose (UA) (Negative) Urine Ketones (Negative) Urine Blood (Negative) Urine Nitrite (Negative) Urine Bilirubin (Negative) Urine Urobilinogen (Negative) Ur Leukocyte Esterase (Negative) Urine Osmolality (500-800) mOsm/kg Ur Random Sodium mmol/L 04/06/18 04/06/18 04/06/18 Range/Units 15:42 15:42 15:42 WBC (4.8-10.8) K/uL RBC (4.7-6.1) M/uL Hgb (14.0-18.0) g/dL POC Hgb (14.0-18.0) g/dl Hct (42-52) % POC Hct (42-52) % MCV (80-100) fL MCH (25-34) pg MCHC (32-36) g/dL RDW Std Deviation (36.4-46.3) fL RDW Coeff of Aida (11.5-14.5) % Plt Count (130-400) K/uL MPV (7.4-10.4) fL Immature Gran % (Auto) % Neut % (Auto) % Lymph % (Auto) % [place] % (Auto) % Eos % (Auto) % Baso % (Auto) % Immature Gran # (Auto) (0.00-0.02) K/uL Neut # (Auto) (1.4-6.5) K/uL Lymph # (Auto) (1.2-3.4) K/uL [place] # (Auto) (0.11-0.59) K/uL Eos # (Auto) (0-0.5) K/uL Baso # (Auto) (0-0.2) K/uL Platelet Estimate (Normal) RBC Morphology PT (9.0-12.0) Seconds INR (0.9-1.1) POC Sodium (135-144) mEq/L Sodium (136-145) mmol/L POC Potassium (3.3-5.0) mEq/L Potassium (3.5-5.1) mmol/L POC Chloride (101-112) mEq/L Chloride (98-107) mmol/L Carbon Dioxide (21-32) mmol/L POC Total CO2 (24-31) mEq/l Anion Gap (3-11) POC Anion Gap (16-25) mmol/L POC BUN (7-18) mg/dl BUN (7-18) mg/dl Creatinine (0.6-1.4) mg/dl POC Creatinine (0.6-1.3) mg/dl Est Cr Clr Drug Dosing Est GFR ( Amer) Est GFR (Non-Af Amer) BUN/Creatinine Ratio (10-20) Glucose (70-99) mg/dl POC Glucose (70-99) POC Glucose (other) (70-99) mg/dl Osmolality 274 L (280-300) mOsm/kg Calcium (8.5-10.1) mg/dl POC Ioniz Calcium [place] (1.12-1.32) mmol/l Magnesium (1.8-2.4) mg/dl Total Bilirubin (0.2-1) mg/dl AST (15-37) U/L ALT (12-78) U/L Alkaline Phosphatase (45-117) U/L Ammonia (11-32) umol/L Troponin I (0-0.045) ng/ml NT-Pro-B Natriuret Pep (0-1800) pg/ml Total Protein (6.4-8.2) gm/dl Albumin (3.4-5.0) gm/dl Globulin (2.5-4.0) gm/dl Albumin/Globulin Ratio (0.9-2) Lipase (73-393) U/L TSH 7.120 H (0.300-4.500) uIu/ml Free T4 (0.8-1.6) ng/dl Total T3 0.59 L (0.60-1.81) ng/ml Urine Color Urine Appearance (Clear) Urine pH (4.5-7.5) Ur Specific [place] (1.000-1.030) Urine Protein (Negative) Urine Glucose (UA) (Negative) Urine Ketones (Negative) Urine Blood (Negative) Urine Nitrite (Negative) Urine Bilirubin (Negative) Urine Urobilinogen (Negative) Ur Leukocyte Esterase (Negative) Urine Osmolality (500-800) mOsm/kg Ur Random Sodium mmol/L 04/06/18 04/06/18 04/06/18 Range/Units 16:28 16:28 16:28 WBC (4.8-10.8) K/uL RBC (4.7-6.1) M/uL Hgb (14.0-18.0) g/dL POC Hgb (14.0-18.0) g/dl Hct (42-52) % POC Hct (42-52) % MCV (80-100) fL MCH (25-34) pg MCHC (32-36) g/dL RDW Std Deviation (36.4-46.3) fL RDW Coeff of Aida (11.5-14.5) % Plt Count (130-400) K/uL MPV (7.4-10.4) fL Immature Gran % (Auto) % Neut % (Auto) % Lymph % (Auto) % [place] % (Auto) % Eos % (Auto) % Baso % (Auto) % Immature Gran # (Auto) (0.00-0.02) K/uL Neut # (Auto) (1.4-6.5) K/uL Lymph # (Auto) (1.2-3.4) K/uL [place] # (Auto) (0.11-0.59) K/uL Eos # (Auto) (0-0.5) K/uL Baso # (Auto) (0-0.2) K/uL Platelet Estimate (Normal) RBC Morphology PT (9.0-12.0) Seconds INR (0.9-1.1) POC Sodium (135-144) mEq/L Sodium (136-145) mmol/L POC Potassium (3.3-5.0) mEq/L Potassium (3.5-5.1) mmol/L POC Chloride (101-112) mEq/L Chloride (98-107) mmol/L Carbon Dioxide (21-32) mmol/L POC Total CO2 (24-31) mEq/l Anion Gap (3-11) POC Anion Gap (16-25) mmol/L POC BUN (7-18) mg/dl BUN (7-18) mg/dl Creatinine (0.6-1.4) mg/dl POC Creatinine (0.6-1.3) mg/dl Est Cr Clr Drug Dosing Est GFR ( Amer) Est GFR (Non-Af Amer) BUN/Creatinine Ratio (10-20) Glucose (70-99) mg/dl POC Glucose (70-99) POC Glucose (other) (70-99) mg/dl Osmolality (280-300) mOsm/kg Calcium (8.5-10.1) mg/dl POC Ioniz Calcium [place] (1.12-1.32) mmol/l Magnesium (1.8-2.4) mg/dl Total Bilirubin (0.2-1) mg/dl AST (15-37) U/L ALT (12-78) U/L Alkaline Phosphatase (45-117) U/L Ammonia (11-32) umol/L Troponin I (0-0.045) ng/ml NT-Pro-B Natriuret Pep (0-1800) pg/ml Total Protein (6.4-8.2) gm/dl Albumin (3.4-5.0) gm/dl Globulin (2.5-4.0) gm/dl Albumin/Globulin Ratio (0.9-2) Lipase (73-393) U/L TSH (0.300-4.500) uIu/ml Free T4 (0.8-1.6) ng/dl Total T3 (0.60-1.81) ng/ml Urine Color Yellow Urine Appearance Clear (Clear) Urine pH 5.0 (4.5-7.5) Ur Specific [place] 1.011 (1.000-1.030) Urine Protein Negative (Negative) Urine Glucose (UA) Negative (Negative) Urine Ketones Negative (Negative) Urine Blood Negative (Negative) Urine Nitrite Negative (Negative) Urine Bilirubin Negative (Negative) Urine Urobilinogen Negative (Negative) Ur Leukocyte Esterase Negative (Negative) Urine Osmolality 286 L (500-800) mOsm/kg Ur Random Sodium 31 mmol/L 04/06/18 04/06/18 04/06/18 Range/Units 21:02 22:55 22:55 WBC (4.8-10.8) K/uL RBC (4.7-6.1) M/uL Hgb (14.0-18.0) g/dL POC Hgb 15.3 (14.0-18.0) g/dl Hct (42-52) % POC Hct 45 (42-52) % MCV (80-100) fL MCH (25-34) pg MCHC (32-36) g/dL RDW Std Deviation (36.4-46.3) fL RDW Coeff of Aida (11.5-14.5) % Plt Count (130-400) K/uL MPV (7.4-10.4) fL Immature Gran % (Auto) % Neut % (Auto) % Lymph % (Auto) % [place] % (Auto) % Eos % (Auto) % Baso % (Auto) % Immature Gran # (Auto) (0.00-0.02) K/uL Neut # (Auto) (1.4-6.5) K/uL Lymph # (Auto) (1.2-3.4) K/uL [place] # (Auto) (0.11-0.59) K/uL Eos # (Auto) (0-0.5) K/uL Baso # (Auto) (0-0.2) K/uL Platelet Estimate (Normal) RBC Morphology PT (9.0-12.0) Seconds INR (0.9-1.1) POC Sodium 128 L (135-144) mEq/L Sodium 129 L (136-145) mmol/L POC Potassium 4.1 (3.3-5.0) mEq/L Potassium (3.5-5.1) mmol/L POC Chloride 94 L (101-112) mEq/L Chloride (98-107) mmol/L Carbon Dioxide (21-32) mmol/L POC Total CO2 22 L (24-31) mEq/l Anion Gap (3-11) POC Anion Gap 17.0 (16-25) mmol/L POC BUN 28 H (7-18) mg/dl BUN (7-18) mg/dl Creatinine (0.6-1.4) mg/dl POC Creatinine 1.4 H (0.6-1.3) mg/dl Est Cr Clr Drug Dosing Est GFR ( Amer) Est GFR (Non-Af Amer) BUN/Creatinine Ratio (10-20) Glucose (70-99) mg/dl POC Glucose (70-99) POC Glucose (other) 136 H (70-99) mg/dl Osmolality (280-300) mOsm/kg Calcium (8.5-10.1) mg/dl POC Ioniz Calcium [place] 1.17 (1.12-1.32) mmol/l Magnesium (1.8-2.4) mg/dl Total Bilirubin (0.2-1) mg/dl AST (15-37) U/L ALT (12-78) U/L Alkaline Phosphatase (45-117) U/L Ammonia 10.9 L (11-32) umol/L Troponin I (0-0.045) ng/ml NT-Pro-B Natriuret Pep (0-1800) pg/ml Total Protein (6.4-8.2) gm/dl Albumin (3.4-5.0) gm/dl Globulin (2.5-4.0) gm/dl Albumin/Globulin Ratio (0.9-2) Lipase (73-393) U/L TSH (0.300-4.500) uIu/ml Free T4 1.32 (0.8-1.6) ng/dl Total T3 (0.60-1.81) ng/ml Urine Color Urine Appearance (Clear) Urine pH (4.5-7.5) Ur Specific [place] (1.000-1.030) Urine Protein (Negative) Urine Glucose (UA) (Negative) Urine Ketones (Negative) Urine Blood (Negative) Urine Nitrite (Negative) Urine Bilirubin (Negative) Urine Urobilinogen (Negative) Ur Leukocyte Esterase (Negative) Urine Osmolality (500-800) mOsm/kg Ur Random Sodium mmol/L 04/07/18 04/07/18 04/07/18 Range/Units 00:01 05:47 05:47 WBC 7.28 (4.8-10.8) K/uL RBC 4.00 L (4.7-6.1) M/uL Hgb 14.0 (14.0-18.0) g/dL POC Hgb (14.0-18.0) g/dl Hct 38.3 L (42-52) % POC Hct (42-52) % MCV 95.8 (80-100) fL MCH 35.0 H (25-34) pg MCHC 36.6 H (32-36) g/dL RDW Std Deviation 49.9 H (36.4-46.3) fL RDW Coeff of Aida 14.3 (11.5-14.5) % Plt Count 99 L (130-400) K/uL MPV 9.9 (7.4-10.4) fL Immature Gran % (Auto) 0.3 % Neut % (Auto) 67.6 % Lymph % (Auto) 18.5 % [place] % (Auto) 12.0 % Eos % (Auto) 1.2 % Baso % (Auto) 0.4 % Immature Gran # (Auto) 0.02 (0.00-0.02) K/uL Neut # (Auto) 4.92 (1.4-6.5) K/uL Lymph # (Auto) 1.35 (1.2-3.4) K/uL [place] # (Auto) 0.87 H (0.11-0.59) K/uL Eos # (Auto) 0.09 (0-0.5) K/uL Baso # (Auto) 0.03 (0-0.2) K/uL Platelet Estimate Decreased (Normal) RBC Morphology Unremarkable PT 18.1 H (9.0-12.0) Seconds INR 1.9 H (0.9-1.1) POC Sodium (135-144) mEq/L Sodium (136-145) mmol/L POC Potassium (3.3-5.0) mEq/L Potassium (3.5-5.1) mmol/L POC Chloride (101-112) mEq/L Chloride (98-107) mmol/L Carbon Dioxide (21-32) mmol/L POC Total CO2 (24-31) mEq/l Anion Gap (3-11) POC Anion Gap (16-25) mmol/L POC BUN (7-18) mg/dl BUN (7-18) mg/dl Creatinine (0.6-1.4) mg/dl POC Creatinine (0.6-1.3) mg/dl Est Cr Clr Drug Dosing Est GFR ( Amer) Est GFR (Non-Af Amer) BUN/Creatinine Ratio (10-20) Glucose (70-99) mg/dl POC Glucose 129 H (70-99) POC Glucose (other) (70-99) mg/dl Osmolality (280-300) mOsm/kg Calcium (8.5-10.1) mg/dl POC Ioniz Calcium [place] (1.12-1.32) mmol/l Magnesium (1.8-2.4) mg/dl Total Bilirubin (0.2-1) mg/dl AST (15-37) U/L ALT (12-78) U/L Alkaline Phosphatase (45-117) U/L Ammonia (11-32) umol/L Troponin I (0-0.045) ng/ml NT-Pro-B Natriuret Pep (0-1800) pg/ml Total Protein (6.4-8.2) gm/dl Albumin (3.4-5.0) gm/dl Globulin (2.5-4.0) gm/dl Albumin/Globulin Ratio (0.9-2) Lipase (73-393) U/L TSH (0.300-4.500) uIu/ml Free T4 (0.8-1.6) ng/dl Total T3 (0.60-1.81) ng/ml Urine Color Urine Appearance (Clear) Urine pH (4.5-7.5) Ur Specific [place] (1.000-1.030) Urine Protein (Negative) Urine Glucose (UA) (Negative) Urine Ketones (Negative) Urine Blood (Negative) Urine Nitrite (Negative) Urine Bilirubin (Negative) Urine Urobilinogen (Negative) Ur Leukocyte Esterase (Negative) Urine Osmolality (500-800) mOsm/kg Ur Random Sodium mmol/L 04/07/18 04/07/18 04/07/18 Range/Units 05:47 07:17 09:06 WBC (4.8-10.8) K/uL RBC (4.7-6.1) M/uL Hgb (14.0-18.0) g/dL POC Hgb (14.0-18.0) g/dl Hct (42-52) % POC Hct (42-52) % MCV (80-100) fL MCH (25-34) pg MCHC (32-36) g/dL RDW Std Deviation (36.4-46.3) fL RDW Coeff of [place] (11.5-14.5) % Plt Count (130-400) K/uL MPV (7.4-10.4) fL Immature Gran % (Auto) % Neut % (Auto) % Lymph % (Auto) % [place] % (Auto) % Eos % (Auto) % Baso % (Auto) % Immature Gran # (Auto) (0.00-0.02) K/uL Neut # (Auto) (1.4-6.5) K/uL Lymph # (Auto) (1.2-3.4) K/uL [place] # (Auto) (0.11-0.59) K/uL Eos # (Auto) (0-0.5) K/uL Baso # (Auto) (0-0.2) K/uL Platelet Estimate (Normal) RBC Morphology PT (9.0-12.0) Seconds INR (0.9-1.1) POC Sodium (135-144) mEq/L Sodium 130 L (136-145) mmol/L POC Potassium (3.3-5.0) mEq/L Potassium 3.7 (3.5-5.1) mmol/L POC Chloride (101-112) mEq/L Chloride 98 (98-107) mmol/L Carbon Dioxide 21 (21-32) mmol/L POC Total CO2 (24-31) mEq/l Anion Gap 11.0 (3-11) POC Anion Gap (16-25) mmol/L POC BUN (7-18) mg/dl BUN 27 H (7-18) mg/dl Creatinine 1.36 (0.6-1.4) mg/dl POC Creatinine (0.6-1.3) mg/dl Est Cr Clr Drug Dosing 39.2 Est GFR ( Amer) 53.1 Est GFR (Non-Af Amer) 45.8 BUN/Creatinine Ratio 19.9 (10-20) Glucose 114 H (70-99) mg/dl POC Glucose 112 H (70-99) POC Glucose (other) (70-99) mg/dl Osmolality 275 L (280-300) mOsm/kg Calcium 9.1 (8.5-10.1) mg/dl POC Ioniz Calcium [place] (1.12-1.32) mmol/l Magnesium (1.8-2.4) mg/dl Total Bilirubin (0.2-1) mg/dl AST (15-37) U/L ALT (12-78) U/L Alkaline Phosphatase (45-117) U/L Ammonia (11-32) umol/L Troponin I 0.027 (0-0.045) ng/ml NT-Pro-B Natriuret Pep (0-1800) pg/ml Total Protein (6.4-8.2) gm/dl Albumin (3.4-5.0) gm/dl Globulin (2.5-4.0) gm/dl Albumin/Globulin Ratio (0.9-2) Lipase (73-393) U/L TSH (0.300-4.500) uIu/ml Free T4 (0.8-1.6) ng/dl Total T3 (0.60-1.81) ng/ml Urine Color Urine Appearance (Clear) Urine pH (4.5-7.5) Ur Specific [place] (1.000-1.030) Urine Protein (Negative) Urine Glucose (UA) (Negative) Urine Ketones (Negative) Urine Blood (Negative) Urine Nitrite (Negative) Urine Bilirubin (Negative) Urine Urobilinogen (Negative) Ur Leukocyte Esterase (Negative) Urine Osmolality (500-800) mOsm/kg Ur Random Sodium mmol/L 04/07/18 04/07/18 Range/Units 11:11 13:00 WBC (4.8-10.8) K/uL RBC (4.7-6.1) M/uL Hgb (14.0-18.0) g/dL POC Hgb (14.0-18.0) g/dl Hct (42-52) % POC Hct (42-52) % MCV (80-100) fL MCH (25-34) pg MCHC (32-36) g/dL RDW Std Deviation (36.4-46.3) fL RDW Coeff of Aida (11.5-14.5) % Plt Count (130-400) K/uL MPV (7.4-10.4) fL Immature Gran % (Auto) % Neut % (Auto) % Lymph % (Auto) % [place] % (Auto) % Eos % (Auto) % Baso % (Auto) % Immature Gran # (Auto) (0.00-0.02) K/uL Neut # (Auto) (1.4-6.5) K/uL Lymph # (Auto) (1.2-3.4) K/uL [place] # (Auto) (0.11-0.59) K/uL Eos # (Auto) (0-0.5) K/uL Baso # (Auto) (0-0.2) K/uL Platelet Estimate (Normal) RBC Morphology PT (9.0-12.0) Seconds INR (0.9-1.1) POC Sodium (135-144) mEq/L Sodium (136-145) mmol/L POC Potassium (3.3-5.0) mEq/L Potassium (3.5-5.1) mmol/L POC Chloride (101-112) mEq/L Chloride (98-107) mmol/L Carbon Dioxide (21-32) mmol/L POC Total CO2 (24-31) mEq/l Anion Gap (3-11) POC Anion Gap (16-25) mmol/L POC BUN (7-18) mg/dl BUN (7-18) mg/dl Creatinine (0.6-1.4) mg/dl POC Creatinine (0.6-1.3) mg/dl Est Cr Clr Drug Dosing Est GFR ( Amer) Est GFR (Non-Af Amer) BUN/Creatinine Ratio (10-20) Glucose (70-99) mg/dl POC Glucose 134 H (70-99) POC Glucose (other) (70-99) mg/dl Osmolality (280-300) mOsm/kg Calcium (8.5-10.1) mg/dl POC Ioniz Calcium [place] (1.12-1.32) mmol/l Magnesium (1.8-2.4) mg/dl Total Bilirubin (0.2-1) mg/dl AST (15-37) U/L ALT (12-78) U/L Alkaline Phosphatase (45-117) U/L Ammonia (11-32) umol/L Troponin I (0-0.045) ng/ml NT-Pro-B Natriuret Pep (0-1800) pg/ml Total Protein (6.4-8.2) gm/dl Albumin (3.4-5.0) gm/dl Globulin (2.5-4.0) gm/dl Albumin/Globulin Ratio (0.9-2) Lipase (73-393) U/L TSH (0.300-4.500) uIu/ml Free T4 (0.8-1.6) ng/dl Total T3 (0.60-1.81) ng/ml Urine Color Urine Appearance (Clear) Urine pH (4.5-7.5) Ur Specific [place] (1.000-1.030) Urine Protein (Negative) Urine Glucose (UA) (Negative) Urine Ketones (Negative) Urine Blood (Negative) Urine Nitrite (Negative) Urine Bilirubin (Negative) Urine Urobilinogen (Negative) Ur Leukocyte Esterase (Negative) Urine Osmolality (500-800) mOsm/kg Ur Random Sodium 30 mmol/L Imaging Data Radiologist's Impression: Radiology results as stated below per my review and the radiologist's interpretation: XR chest 1V portable FINDINGS: Left subclavian pacer with single lead to the right ventricular apex. Median sternotomy wires with breakage of the most inferior wire as on prior exam. Prosthetic aortic valve. Atherosclerosis of the aortic arch. Cardiac silhouette mildly enlarged. Pulmonary vascular prominence with significant central and bibasilar predominant added density. Bronchial wall thickening. Trace bilateral pleural effusions, left greater than right. No pneumothorax. Degenerative changes of the thoracic spine. Upper abdomen normal. IMPRESSION: 1. Mild cardiomegaly with volume overload/congestive change and mild to moderate pulmonary edema. 2. Suspected trace bilateral pleural effusions. Electronically signed by: Andrea Navarrete M.D. 04/06/2018 3:52 PM ECG Data Attestation: I personally reviewed and interpreted this ECG as follows: Indication: SOB/dyspnea Rate (beats per minute): 81 Rhythm: atrial fibrillation Findings: + RBBB and + left axis deviation; no ST depression and no ST elevation Comparison ECG Date: from (01/16/2017) Change: no significant change Blood Pressure Blood Pressure Findings: Normal blood pressure Blood Pressure Disposition: did not require urgent referral MDM Narrative Patient here well-appearing despite complaints. I feel patient's dyspnea on exertion is likely multifactorial with a component of volume overload, and a component of COPD. I do think given patient's description his anxiety could also play a role. Patient with significant cardiac history, case discussed with Dr. Burris as a precaution who felt patient could be given an extra dose of diuretic here to see if this helped with the breathing that he could be managed as an outpatient and followed up in the office on Sunday. Patient also unfortunately found to have hyponatremia and acute kidney injury compared to his baseline. Given the management of this could be difficult in the setting of his current state as well as his complicated medical history, I had several bedside discussions with the patient and family regarding his condition, my conversation with cardiology, and my concerns regarding his management. They would prefer patient be admitted, and I feel this is the safer option instead of trying to manage this as an outpatient at this time. Case discussed with hospitalist for additional evaluation. I do not suspect occult infectious etiology. Patient's INR is therapeutic I do not suspect PE contributing to dyspnea. Patient was otherwise hemodynamically stable in the emergency room, not hypoxic on ambulatory trial. Impression & Plan Acute dyspnea, Generalized weakness, Acute hyponatremia, Acute kidney injury, CHF (congestive heart failure) Discharge Plan Visit Data *Final* Discharge Date/Time: 04/06/18 23:18 Chief Complaint: Shortness of Breath/Dyspnea Stated Complaint: SHORTNESS OF BREATH, CHF ED Provider: Tania Verma Discharge Problem: Acute dyspnea, Generalized weakness, Acute hyponatremia, Acute kidney injury, CHF (congestive heart failure) Patient Disposition: Admitted As Inpatient Condition: Good Discharge Instructions Interventions: ED Discharge Assessment Last Done: 04/06/18 23:18 The scribe's documentation has been prepared under my direction and personally reviewed by me in its entirety. I confirm that the note above accurately reflects all work, treatment, procedures, and medical decision making performed by me.
--- NOTE | 2018-04-06 22:53 | History & Physical Report ---
Date of Service April 06, 2018 Assessment & Plan (1) Acute decompensated heart failure: hx chronic diastolic heart failure (EF 55% TTE 2017) Unclear precipitant Hyponatremia secondary to CHF, home diuretic Rx hx congenital bicuspid aortic valve status post bioprosthetic AVR CAD status post CABG A. fib status post maze status post PPM on Coumadin, rate controlled INR therapeutic hx COPD as per records, not in acute exacerbation history PE/DVT status post IVC filter placement DM2 on oral meds, well controlled as of recent outpatient hemoglobin A1c of 6.4 last November 2016 CRI, kidney function close to baseline chronic thrombocytopenia Hypothyroidism, TSH noted to be elevated along with low total T3 Anxiety DSO, patient/family prefer non-pharmacologic interventions for now given adverse reactions to 2 recent medication trials outpatient. PCU Diuretic Rx Strict I/Os, daily weights, CHF education Update TTE, Cardiology consult RE CHF Monitor sodium, renal function while on diuretic Rx Hyponatremia workup Fluid restriction of 1.5 L for now May need Nephrology consultation if with worsening hyponatremia Adjust Levothyroxine dose, recheck TSH next month ISS, BG goal 140-180, patient due for hemoglobin A1c recheck PT OT eval DVT prophylaxis. Coumadin INR 2-3 DNR Patient's daughters requesting updates from providers. Ms. Mahendra Sigala, contact #[phone]/Ms. Alysha Jansen [phone]. History of Present Illness Chief Complaint: Shortness of breath Primary Care Provider: Carlos Rojas History obtained from patient, family, and records. Medical history significant for chronic diastolic heart failure (EF 55% TTE 2017 ), history congenital bicuspid aortic valve status post bioprosthetic AVR, CAD status post CABG, A. fib status post maze status post PPM on Coumadin, history PE/DVT status post IVC filter placement, COPD as per records, DM2 on oral meds, CRI (baseline creatinine 1.2-1.3), chronic thrombocytopenia Recent confinement November 2016 for decompensated heart failure. Patient brought to the ER tonight because of few days history of shortness of breath especially on exertion, fluid retention, approximately 5 pound weight gain as per patient/family. Patient denies chest pain. Denies dietary indiscretion. No unusual cough symptoms. Patient compliant with home medications. At the ER, patient given IV Lasix for CHF. Medical History as above Recent outpatient trials of BuSpar and Sertraline for anxiety stopped after patient developed confusion while taking medications. 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, lives w Allergies Allergy/AdvReac Type Severity Reaction Status Date / Time aspirin Allergy Mild SWELLING Verified 04/06/18 16:14 UPPER LIP oxycodone Allergy Unknown PER Verified 04/06/18 16:43 [facility] LIST pravastatin [From Pravachol] AdvReac Intermediate Muscle Pain Verified 04/06/18 16:43 rosuvastatin [From Crestor] AdvReac Intermediate Muscle Pain Verified 04/06/18 16:43 simvastatin [From Zocor] AdvReac Intermediate Muscle Pain Verified 04/06/18 16: 43 Jtmzzla-[id number]-Kgo Reductase AdvReac Intermediate Muscle Pain Verified 04/06/18 16: 43 Inhibitor Home Medications Home Medications Medication Instructions Recorded Confirmed Type albuterol sulfate 2.5 mg INHALATION DIRECTED PRN 04/06/18 04/06/18 History albuterol sulfate [Proventil HFA] 2 puff INHALATION Q6H PRN 04/06/18 04/06/18 History amoxicillin 2,000 mg PO ONCE PRN 04/06/18 04/06/18 History brinzolamide [Azopt] 1 drp OPB BID 04/06/18 04/06/18 History cholecalciferol (vitamin D3) 2,000 unit PO QAM 04/06/18 04/06/18 History [Vitamin D3] colestipol 8 g PO QAM 04/06/18 04/06/18 History desloratadine 5 mg PO QAM 04/06/18 04/06/18 History furosemide [Lasix] 20 mg PO DAILY 04/06/18 04/06/18 History latanoprost 1 drp OPB HS 04/06/18 04/06/18 History levothyroxine 75 mcg PO DAILY 04/06/18 04/06/18 History metformin 500 mg PO BIDM 04/06/18 04/06/18 History metronidazole 1 applic TOPICAL BID 04/06/18 04/06/18 History sotalol 80 mg PO AMPM 04/06/18 04/06/18 History timolol maleate 1 drp OPB BID 04/06/18 04/06/18 History tiotropium bromide [Spiriva with 1 cap INHALATION DAILY 04/06/18 04/06/18 History HandiHaler] warfarin [Coumadin] 5 mg PO 2XWK 04/06/18 04/06/18 History warfarin [Coumadin] 7.5 mg PO 5XWK 04/06/18 04/06/18 History Past Med/Surg History Medical History CHF (congestive heart failure) (Chronic) HTN (hypertension) (Chronic) Diabetes (Chronic) Pacemaker (Chronic) Atrial fibrillation (Chronic) HLD (hyperlipidemia) (Chronic) Glaucoma (Chronic) 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 (PE) (Chronic) CAD (coronary artery disease) (Chronic) "S/p CABG x4 in 2012" Surgical History S/P AVR (aortic valve replacement) (Chronic) Family History Other No significant family history Social History Current Living Situation: Spouse Other Information That Helps Us Care for You: No Feels Safe at Home: Yes Safety Concerns: Feels Safe At This Time Smoking Status: Never smoker Hx Alcohol Use: No Hx Substance Use: No Beliefs That Will Affect Care: None Preferred Language: Lao Communication Ability: Effective Drawing In Hand Required: No Review of Systems As per HPI, all 10 systems reviewed, all other ROS negative Physical Exam 2 Vital Signs (Past 24 Hours): Last Vital Signs Temp 36.8 C 04/06/18 14:32 Pulse 92 H 04/06/18 22:13 Resp 15 04/06/18 22:13 BP 119/75 04/06/18 22:13 Pulse Ox 99 04/06/18 22:13 Physical Exam: GENERAL: Slightly anxious, pleasant, no respiratory distress SKIN: Normal color, warm HEENT: [place] palpebral conjunctivae, no ptosis, dry buccal mucosa NECK : Supple, no tenderness CHEST : Decreased breath sounds, healed sternal scar, no tenderness HEART : Irregular, ? Diastolic murmur ABDOMEN: Some distention, nontender EXTREMITIES : Bilateral LE swelling, no tenderness, no other conspicuous deformities noted NEUROLOGIC : Coherent, no facial asymmetry, no other gross focality Results & Data Laboratory Results Laboratory Results WBC 9.87 K/uL (4.8-10.8) 04/06/18 15:42 RBC 4.43 M/uL (4.7-6.1) L 04/06/18 15:42 Hgb 15.3 g/dL (14.0-18.0) 04/06/18 15:42 POC Hgb 15.3 g/dl (14.0-18.0) 04/06/18 21:02 Hct 42.8 % (42-52) 04/06/18 15:42 POC Hct 45 % (42-52) 04/06/18 21:02 MCV 96.6 fL (80-100) 04/06/18 15:42 MCH 34.5 pg (25-34) H 04/06/18 15:42 MCHC 35.7 g/dL (32-36) 04/06/18 15:42 RDW Std Deviation 50.2 fL (36.4-46.3) H 04/06/18 15:42 RDW Coeff of Aida 14.2 % (11.5-14.5) 04/06/18 15:42 Plt Count 127 K/uL (130-400) L 04/06/18 15:42 MPV 9.9 fL (7.4-10.4) 04/06/18 15:42 Immature Gran % (Auto) 0.3 % 04/06/18 15:42 Neut % (Auto) 76.5 % 04/06/18 15:42 Lymph % (Auto) 12.9 % 04/06/18 15:42 [place] % (Auto) 9.5 % 04/06/18 15:42 Eos % (Auto) 0.7 % 04/06/18 15:42 Baso % (Auto) 0.1 % 04/06/18 15:42 Immature Gran # (Auto) 0.03 K/uL (0.00-0.02) H 04/06/18 15:42 Neut # (Auto) 7.55 K/uL (1.4-6.5) H 04/06/18 15:42 Lymph # (Auto) 1.27 K/uL (1.2-3.4) 04/06/18 15:42 [place] # (Auto) 0.94 K/uL (0.11-0.59) H 04/06/18 15:42 Eos # (Auto) 0.07 K/uL (0-0.5) 04/06/18 15:42 Baso # (Auto) 0.01 K/uL (0-0.2) 04/06/18 15:42 PT 20.6 Seconds (9.0-12.0) H 04/06/18 15:42 INR 2.1 (0.9-1.1) H 04/06/18 15:42 POC Sodium 128 mEq/L (135-144) L 04/06/18 21:02 Sodium 126 mmol/L (136-145) L 04/06/18 15:42 POC Potassium 4.1 mEq/L (3.3-5.0) 04/06/18 21:02 Potassium 4.2 mmol/L (3.5-5.1) 04/06/18 15:42 POC Chloride 94 mEq/L (101-112) L 04/06/18 21:02 Chloride 93 mmol/L (98-107) L 04/06/18 15:42 Carbon Dioxide 22 mmol/L (21-32) 04/06/18 15:42 POC Total CO2 22 mEq/l (24-31) L 04/06/18 21:02 Anion Gap 11.0 (3-11) 04/06/18 15:42 POC Anion Gap 17.0 mmol/L (16-25) 04/06/18 21:02 POC BUN 28 mg/dl (7-18) H 04/06/18 21:02 BUN 28 mg/dl (7-18) H 04/06/18 15:42 Creatinine 1.50 mg/dl (0.6-1.4) H 04/06/18 15:42 POC Creatinine 1.4 mg/dl (0.6-1.3) H 04/06/18 21:02 Est Cr Clr Drug Dosing Not Reportable 04/06/18 15:42 Est GFR ( Amer) 47.2 04/06/18 15:42 Est GFR (Non-Af Amer) 40.7 04/06/18 15:42 BUN/Creatinine Ratio 18.8 (10-20) 04/06/18 15:42 Glucose 120 mg/dl (70-99) H 04/06/18 15:42 POC Glucose (other) 136 mg/dl (70-99) H 04/06/18 21:02 Calcium 9.6 mg/dl (8.5-10.1) 04/06/18 15:42 POC Ioniz Calcium Reginald 1.17 mmol/l (1.12-1.32) 04/06/18 21:02 Magnesium 2.1 mg/dl (1.8-2.4) 04/06/18 15:42 Total Bilirubin 1.2 mg/dl (0.2-1) H 04/06/18 15:42 AST 22 U/L (15-37) 04/06/18 15:42 ALT 25 U/L (12-78) 04/06/18 15:42 Alkaline Phosphatase 126 U/L (45-117) H 04/06/18 15:42 Troponin I < 0.015 ng/ml (0-0.045) 04/06/18 15:42 NT-Pro-B Natriuret Pep 5852 pg/ml (0-1800) H 04/06/18 15:42 Total Protein 7.3 gm/dl (6.4-8.2) 04/06/18 15:42 Albumin 3.7 gm/dl (3.4-5.0) 04/06/18 15:42 Globulin 3.6 gm/dl (2.5-4.0) 04/06/18 15:42 Albumin/Globulin Ratio 1.0 (0.9-2) 04/06/18 15:42 Lipase 156 U/L (73-393) 04/06/18 15:42 TSH 7.120 uIu/ml (0.300-4.500) H 04/06/18 15:42 Urine Color Yellow 04/06/18 16:28 Urine Appearance Clear (Clear) 04/06/18 16:28 Urine pH 5.0 (4.5-7.5) 04/06/18 16:28 Ur Specific [place] 1.011 (1.000-1.030) 04/06/18 16:28 Urine Protein Negative (Negative) 04/06/18 16:28 Urine Glucose (UA) Negative (Negative) 04/06/18 16:28 Urine Ketones Negative (Negative) 04/06/18 16:28 Urine Blood Negative (Negative) 04/06/18 16:28 Urine Nitrite Negative (Negative) 04/06/18 16:28 Urine Bilirubin Negative (Negative) 04/06/18 16:28 Urine Urobilinogen Negative (Negative) 02/02/19 16:28 Ur Leukocyte Esterase Negative (Negative) 04/06/18 16:28 Urine Osmolality 286 mOsm/kg (500-800) L 04/06/18 16:28 Diagnostic Findings Chest x-ray showed cardiomegaly, CHF EKG as per my interpretation : Rate 80, A. fib, LAD, LAFB, RBBB, T wave inversion inferior leads, PVCs
[2018-04-06 23:27] LABS: T4 Free Thyroxine 1.32 ng/dl (0.8-1.6)
[2018-04-06] MEDS ORDERED: GLUCAGON FOR INJ 1 MG VIAL SQ PRN (23:35)
[2018-04-06] MEDS ORDERED: CARBOHYDRATES FOR HYPOGLYCEMIA PO PRN (23:35)
[2018-04-06] MEDS ORDERED: TRAMADOL HCL 50 MG TABLET PO PRN (23:35)
[2018-04-06] MEDS ORDERED: GLUCOSE 40% GEL 15 GM TUBE PO PRN (23:35)
[2018-04-06] MEDS ORDERED: ACETAMINOPHEN 325 MG TAB PO PRN (23:35)
[2018-04-06] MEDS ORDERED: GLUCOSE 10 TABS/TUBE PO PRN (23:35)
[2018-04-06] MEDS ORDERED: NITROGLYCERIN SL 0.4 MG/TAB TAB SL PRN (23:35)
[2018-04-06] MEDS ORDERED: DEXTROSE 50% 50 ML SYRINGE IV PRN (23:35)
[2018-04-07] MEDS: INSULIN ASPART 100 UNITS/ML 3 ML PEN SC SCH ×5 (00:31→21:26)
[2018-04-07] MEDS: SOTALOL HCL 80 MG TAB PO SCH ×2 (00:51→07:51)
[2018-04-07 06:02] LABS: Hematocrit (blood only) 38.3 % (42-52); Mean Corpuscular Hgb Conc 36.6 g/dL (32-36); Mean Corpuscular Volume 95.8 fL (80-100); RDW Coefficient of Variation 14.3 % (11.5-14.5); RDW Standard Deviation 49.9 fL (36.4-46.3); White Blood Count 7.28 K/uL (4.8-10.8)
[2018-04-07] MEDS: LEVOTHYROXINE SODIUM 88 MCG TABLET PO SCH (06:04)
[2018-04-07 06:23] LABS: Basophils # (auto) 0.03 K/uL (0-0.2); Basophils % (auto) 0.4 %; Eosinophils # (auto) 0.09 K/uL (0-0.5); Eosinophils % (auto) 1.2 %; Immature Granulocytes # (auto) 0.02 K/uL (0.00-0.02); Immature Granulocytes % (auto) 0.3 %; Lymphocytes # (auto) 1.35 K/uL (1.2-3.4); Lymphocytes % (auto) 18.5 %; Mean Platelet Volume 9.9 fL (7.4-10.4); Monocytes # (auto) 0.87 K/uL (0.11-0.59); Neutrophils # (auto) 4.92 K/uL (1.4-6.5); Neutrophils % (auto) 67.6 %; Platelet Count 99 K/uL (130-400); RBC Morphology Unremarkable
[2018-04-07 06:27] LABS: INR 1.9 (0.9-1.1); Prothrombin Time 18.1 Seconds (9.0-12.0)
[2018-04-07] MEDS ORDERED: LEVOTHYROXINE SODIUM 75 MCG TABLET PO SCH (06:30)
[2018-04-07 06:33] LABS: BUN Creatinine Ratio 19.9 (10-20); Calcium 9.1 mg/dl (8.5-10.1); Creatinine Clr Calc Pharmacy 39.2 ml/min; Est GFR (African American) 53.1; Est GFR (Non-African American) 45.8; Potassium 3.7 mmol/L (3.5-5.1)
[2018-04-07 06:38] LABS: Troponin I 0.027 ng/ml (0-0.045)
[2018-04-07] MEDS: TIOTROPIUM BROMIDE 5 PUFF/90 MCG INH INH SCH (07:50)
[2018-04-07] MEDS: BRINZOLAMIDE (AZOPT) OPS 10 ML BTL OPB SCH ×2 (07:52→21:30)
[2018-04-07] MEDS: TIMOLOL MALEATE 0.25% OP SOLN 5 ML BTL OPB SCH ×2 (07:52→21:31)
[2018-04-07] MEDS ORDERED: FUROSEMIDE 40 MG/4 ML VIAL IV ONE (08:00)
[2018-04-07] MEDS ORDERED: GLUCAGON FOR INJ 1 MG VIAL SQ PRN (08:29)
[2018-04-07] MEDS ORDERED: DEXTROSE 50% 50 ML SYRINGE IV PRN (08:29)
[2018-04-07] MEDS ORDERED: GLUCOSE 40% GEL 15 GM TUBE PO PRN (08:29)
[2018-04-07] MEDS ORDERED: GLUCOSE 10 TABS/TUBE PO PRN (08:29)
[2018-04-07] MEDS ORDERED: CARBOHYDRATES FOR HYPOGLYCEMIA PO PRN (08:29)
--- NOTE | 2018-04-07 08:48 | Hospitalist Progress Note ---
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 on Coumadin, rate controlled -- INR 1.9 continue coumadin hx COPD as per records -- not in acute exacerbation history PE/DVT status post IVC filter placement -- continue coumadin DM2 on oral meds, well controlled as of recent outpatient hemoglobin A1c of 6.4 last November 2016 -- hold Metformin ISS for now CRI, kidney function close to baseline -- baseline chronic thrombocytopenia Hypothyroidism, TSH noted to be elevated along with low total T3 -- Lthyroxine increased to 88mcg repeat TFTs as outpatient Anxiety DSO, patient/family prefer non-pharmacologic interventions for now given adverse reactions to 2 recent medication trials outpatient. DVT prophylaxis coumadin DNR Dispo pending lives at home with daughter Patient's daughters requesting updates from providers. Ms. Mahendra Sigala, contact #[phone]/Ms. Alysha Jansen [phone]. Subjective ff up for acute CHF exacerbation seen resting in bed, comfortable, in good spirits states he feels 100% better today breathing has significantly improved denies cough, sputum production, fever/chills no chest pain, dyspnea, palpitations, dizziness denies other symptoms Physical Exam 2 Vital Signs (Past 24 Hours): Last Vital Signs Temp 36.7 C 04/07/18 08:18 Pulse 78 04/07/18 08:18 Resp 16 04/07/18 04:40 BP 104/61 04/07/18 08:18 Pulse Ox 96 04/07/18 08:18 Physical Exam: General- oriented x 3, not in distress, speaks in sentences with no effort or accessory muscle use Head- atraumatic Eyes- PERRL, EOMI, anicteric ENT- oropharynx clear Neck- supple, no JVD, no adenopathy, no thyromegaly; carotids +2/2, no bruits appreciated Lungs- clear to auscultation bilaterally, no rales/wheezes Heart- normal rate, regular rhythm; no murmurs Abdomen- normal bowel sounds, nondistended, soft, nontender, no masses or hepatosplenomegaly Extremities- no pretibial edema, no calf tenderness; peripheral pulses intact Neuro- alert, oriented x 3; CN 2-12 grossly intact; motor 5/5 bilaterally; sensation 100% on all extremities; no other gross focal neurologic deficits Skin- warm & dry Results & Data Laboratory Results Laboratory Results - last 24 hr 04/06/18 04/06/18 04/06/18 15:42 15:42 15:42 WBC 9.87 RBC 4.43 L Hgb 15.3 POC Hgb Hct 42.8 POC Hct MCV 96.6 MCH 34.5 H MCHC 35.7 RDW Std Deviation 50.2 H RDW Coeff of Aida 14.2 Plt Count 127 L MPV 9.9 Immature Gran % (Auto) 0.3 Neut % (Auto) 76.5 Lymph % (Auto) 12.9 Dundy % (Auto) 9.5 Eos % (Auto) 0.7 Baso % (Auto) 0.1 Immature Gran # (Auto) 0.03 H Neut # (Auto) 7.55 H Lymph # (Auto) 1.27 Dundy # (Auto) 0.94 H Eos # (Auto) 0.07 Baso # (Auto) 0.01 Platelet Estimate RBC Morphology PT 20.6 H INR 2.1 H POC Sodium Sodium 126 L POC Potassium Potassium 4.2 POC Chloride Chloride 93 L Carbon Dioxide 22 POC Total CO2 Anion Gap 11.0 POC Anion Gap POC BUN BUN 28 H Creatinine 1.50 H POC Creatinine Est Cr Clr Drug Dosing Not Reportable Est GFR ( Amer) 47.2 Est GFR (Non-Af Amer) 40.7 BUN/Creatinine Ratio 18.8 Glucose 120 H POC Glucose POC Glucose (other) Osmolality Calcium 9.6 POC Ioniz Calcium Reginald Magnesium 2.1 Total Bilirubin 1.2 H AST 22 ALT 25 Alkaline Phosphatase 126 H Ammonia Troponin I < 0.015 NT-Pro-B Natriuret Pep 5852 H Total Protein 7.3 Albumin 3.7 Globulin 3.6 Albumin/Globulin Ratio 1.0 Lipase 156 TSH Free T4 Total T3 Urine Color Urine Appearance Urine pH Ur Specific [place] Urine Protein Urine Glucose (UA) Urine Ketones Urine Blood Urine Nitrite Urine Bilirubin Urine Urobilinogen Ur Leukocyte Esterase Urine Osmolality Ur Random Sodium 04/06/18 04/06/18 04/06/18 15:42 15:42 15:42 WBC RBC Hgb POC Hgb Hct POC Hct MCV MCH MCHC RDW Std Deviation RDW Coeff of Aida Plt Count MPV Immature Gran % (Auto) Neut % (Auto) Lymph % (Auto) [place] % (Auto) Eos % (Auto) Baso % (Auto) Immature Gran # (Auto) Neut # (Auto) Lymph # (Auto) [place]undy # (Auto) Eos # (Auto) Baso # (Auto) Platelet Estimate RBC Morphology PT INR POC Sodium Sodium POC Potassium Potassium POC Chloride Chloride Carbon Dioxide POC Total CO2 Anion Gap POC Anion Gap POC BUN BUN Creatinine POC Creatinine Est Cr Clr Drug Dosing Est GFR ( Amer) Est GFR (Non-Af Amer) BUN/Creatinine Ratio Glucose POC Glucose POC Glucose (other) Osmolality 274 L Calcium POC Ioniz Calcium Reginald Magnesium Total Bilirubin AST ALT Alkaline Phosphatase Ammonia Troponin I NT-Pro-B Natriuret Pep Total Protein Albumin Globulin Albumin/Globulin Ratio Lipase TSH 7.120 H Free T4 Total T3 0.59 L Urine Color Urine Appearance Urine pH Ur Specific [place] Urine Protein Urine Glucose (UA) Urine Ketones Urine Blood Urine Nitrite Urine Bilirubin Urine Urobilinogen Ur Leukocyte Esterase Urine Osmolality Ur Random Sodium 04/06/18 04/06/18 04/06/18 16:28 16:28 16:28 WBC RBC Hgb POC Hgb Hct POC Hct MCV MCH MCHC RDW Std Deviation RDW Coeff of Aida Plt Count MPV Immature Gran % (Auto) Neut % (Auto) Lymph % (Auto) [place]undy % (Auto) Eos % (Auto) Baso % (Auto) Immature Gran # (Auto) Neut # (Auto) Lymph # (Auto) [place] # (Auto) Eos # (Auto) Baso # (Auto) Platelet Estimate RBC Morphology PT INR POC Sodium Sodium POC Potassium Potassium POC Chloride Chloride Carbon Dioxide POC Total CO2 Anion Gap POC Anion Gap POC BUN BUN Creatinine POC Creatinine Est Cr Clr Drug Dosing Est GFR ( Amer) Est GFR (Non-Af Amer) BUN/Creatinine Ratio Glucose POC Glucose POC Glucose (other) Osmolality Calcium POC Ioniz Calcium Reginald Magnesium Total Bilirubin AST ALT Alkaline Phosphatase Ammonia Troponin I NT-Pro-B Natriuret Pep Total Protein Albumin Globulin Albumin/Globulin Ratio Lipase TSH Free T4 Total T3 Urine Color Yellow Urine Appearance Clear Urine pH 5.0 Ur Specific [place] 1.011 Urine Protein Negative Urine Glucose (UA) Negative Urine Ketones Negative Urine Blood Negative Urine Nitrite Negative Urine Bilirubin Negative Urine Urobilinogen Negative Ur Leukocyte Esterase Negative Urine Osmolality 286 L Ur Random Sodium 31 04/06/18 04/06/18 04/06/18 21:02 22:55 22:55 WBC RBC Hgb POC Hgb 15.3 Hct POC Hct 45 MCV MCH MCHC RDW Std Deviation RDW Coeff of Aida Plt Count MPV Immature Gran % (Auto) Neut % (Auto) Lymph % (Auto) [place] % (Auto) Eos % (Auto) Baso % (Auto) Immature Gran # (Auto) Neut # (Auto) Lymph # (Auto) [place] # (Auto) Eos # (Auto) Baso # (Auto) Platelet Estimate RBC Morphology PT INR POC Sodium 128 L Sodium 129 L POC Potassium 4.1 Potassium POC Chloride 94 L Chloride Carbon Dioxide POC Total CO2 22 L Anion Gap POC Anion Gap 17.0 POC BUN 28 H BUN Creatinine POC Creatinine 1.4 H Est Cr Clr Drug Dosing Est GFR ( Amer) Est GFR (Non-Af Amer) BUN/Creatinine Ratio Glucose POC Glucose POC Glucose (other) 136 H Osmolality Calcium POC Ioniz Calcium Reginald 1.17 Magnesium Total Bilirubin AST ALT Alkaline Phosphatase Ammonia 10.9 L Troponin I NT-Pro-B Natriuret Pep Total Protein Albumin Globulin Albumin/Globulin Ratio Lipase TSH Free T4 1.32 Total T3 Urine Color Urine Appearance Urine pH Ur Specific [place] Urine Protein Urine Glucose (UA) Urine Ketones Urine Blood Urine Nitrite Urine Bilirubin Urine Urobilinogen Ur Leukocyte Esterase Urine Osmolality Ur Random Sodium 04/07/18 04/07/18 04/07/18 00:01 05:47 05:47 WBC 7.28 RBC 4.00 L Hgb 14.0 POC Hgb Hct 38.3 L POC Hct MCV 95.8 MCH 35.0 H MCHC 36.6 H RDW Std Deviation 49.9 H RDW Coeff of Aida 14.3 Plt Count 99 L MPV 9.9 Immature Gran % (Auto) 0.3 Neut % (Auto) 67.6 Lymph % (Auto) 18.5 [place] % (Auto) 12.0 Eos % (Auto) 1.2 Baso % (Auto) 0.4 Immature Gran # (Auto) 0.02 Neut # (Auto) 4.92 Lymph # (Auto) 1.35 [place] # (Auto) 0.87 H Eos # (Auto) 0.09 Baso # (Auto) 0.03 Platelet Estimate Decreased RBC Morphology Unremarkable PT 18.1 H INR 1.9 H POC Sodium Sodium POC Potassium Potassium POC Chloride Chloride Carbon Dioxide POC Total CO2 Anion Gap POC Anion Gap POC BUN BUN Creatinine POC Creatinine Est Cr Clr Drug Dosing Est GFR ( Amer) Est GFR (Non-Af Amer) BUN/Creatinine Ratio Glucose POC Glucose 129 H POC Glucose (other) Osmolality Calcium POC Ioniz Calcium Reginald Magnesium Total Bilirubin AST ALT Alkaline Phosphatase Ammonia Troponin I NT-Pro-B Natriuret Pep Total Protein Albumin Globulin Albumin/Globulin Ratio Lipase TSH Free T4 Total T3 Urine Color Urine Appearance Urine pH Ur Specific [place] Urine Protein Urine Glucose (UA) Urine Ketones Urine Blood Urine Nitrite Urine Bilirubin Urine Urobilinogen Ur Leukocyte Esterase Urine Osmolality Ur Random Sodium 04/07/18 04/07/18 05:47 07:17 WBC RBC Hgb POC Hgb Hct POC Hct MCV MCH MCHC RDW Std Deviation RDW Coeff of Aida Plt Count MPV Immature Gran % (Auto) Neut % (Auto) Lymph % (Auto) [place] % (Auto) Eos % (Auto) Baso % (Auto) Immature Gran # (Auto) Neut # (Auto) Lymph # (Auto) [place] # (Auto) Eos # (Auto) Baso # (Auto) Platelet Estimate RBC Morphology PT INR POC Sodium Sodium 130 L POC Potassium Potassium 3.7 POC Chloride Chloride 98 Carbon Dioxide 21 POC Total CO2 Anion Gap 11.0 POC Anion Gap POC BUN BUN 27 H Creatinine 1.36 POC Creatinine Est Cr Clr Drug Dosing 39.2 Est GFR ( Amer) 53.1 Est GFR (Non-Af Amer) 45.8 BUN/Creatinine Ratio 19.9 Glucose 114 H POC Glucose 112 H POC Glucose (other) Osmolality Calcium 9.1 POC Ioniz Calcium Reginald Magnesium Total Bilirubin AST ALT Alkaline Phosphatase Ammonia Troponin I 0.027 NT-Pro-B Natriuret Pep Total Protein Albumin Globulin Albumin/Globulin Ratio Lipase TSH Free T4 Total T3 Urine Color Urine Appearance Urine pH Ur Specific [place] Urine Protein Urine Glucose (UA) Urine Ketones Urine Blood Urine Nitrite Urine Bilirubin Urine Urobilinogen Ur Leukocyte Esterase Urine Osmolality Ur Random Sodium
[2018-04-07] MEDS: FUROSEMIDE 20 MG TAB PO SCH (09:41)
--- NOTE | 2018-04-07 10:35 | XRay Report ---
XR chest 1V portable CLINICAL HISTORY: ff up chf dyspnea COMPARISON STUDY: 04/06/2018 FINDINGS: Improved findings of congestive failure. Mild residual. Trace pleural fluid lateral costoph renic angles. Somewhat diminished cardiac size. Prior median sternotomy. IMPRESSION: Improving congestive heart failure The above report was generated using voice recognition software. It may contain grammatical, syntax or spelling errors. Electronically signed by: Ronnie Villegas M.D. 04/07/2018 10:34 AM
[2018-04-07] MEDS: metroNIDAZOLE 0.75% TOPICAL GEL 45 GM TUBE TOP SCH ×2 (12:57→21:32)
--- NOTE | 2018-04-07 13:12 | Cardiology Consultation ---
Date of Consultation April 07, 2018 Assessment & Plan (1) Acute decompensated heart failure: Clinically improved after single dose IV furosemide. We will increase oral furosemide dosing to 40 mg/day alternating with 20 mg Etiology likely multifactorial possibly due to more frequent atrial fibrillation as noted below. Medications adjusted echocardiogram will be reassessed to establish prosthetic valve function LV systolic function last study performed 2016 (2) Acute hyponatremia: Likely secondary to congestive heart failure improved after diuresis this morning (3) S/P AVR (aortic valve replacement): We will reassess valve structure (4) CAD (coronary artery disease): No anginal symptoms or complaints to suggest acute ischemia (5) Atrial fibrillation: Patient history of past paroxysmal trolled intermittently in sinus rhythm with sotalol. Given prolonged QT interval worsening renal insufficiency and patient near persistent atrial fibrillation will discontinue sotalol switch to metoprolol XL 50 mg twice per day. History of Present Illness Reason for Consultation: Congestive heart failure Requesting Physician: Dr. Pool Bonner Attending Physician: Pool Bonner MD History of Present Illness Patient is a complex 87-year-old male past medical history notable for 1. Congenitally bicuspid aortic valve 2. Status post aortic valve replacement 2012, #27 Dante Lazcano bioprosthesis 3. Status post coronary bypass grafting 2013 DICK graft LAD, saphenous vein graft to diagonal, saphenous vein graft to the ramus, saphenous vein graft to the circumflex 4. Intraoperative modified Michael procedure 5. Dual-chamber pacemaker insertion same admission for high degree AV block 6. Paroxysmal approaching persistent atrial fibrillation 7. History of remote pulmonary emboli DVT prior to cardiac surgery status post IVC filter 8. Statin intolerance Patient presents now not having felt well for 1-2 weeks increasing orthopnea and dyspnea approximately 5 pound weight gain generalized sense of malaise. Patient denies chest pains tachypalpitations syncope or near syncope appetite is been generally improving. He received a single dose of IV furosemide in the emergency room with diuresis and improvement in symptoms this morning. He is referred now for further evaluation. He denies any difficulty taking medications. Notes no bleeding difficulties notes no melena hematochezia notes no acute neurologic complaints though chronic anxiety remains an issue per patient and family pacemaker check last performed January 2018 demonstrated normal pacemaker function frequent mode switch/atrial fibrillation Allergies Allergy/AdvReac Type Severity Reaction Status Date / Time aspirin Allergy Mild SWELLING Verified 04/06/18 16:14 UPPER LIP oxycodone Allergy Unknown PER Verified 04/06/18 16:43 [facility] LIST pravastatin [From Pravachol] AdvReac Intermediate Muscle Pain Verified 04/06/18 16:43 rosuvastatin [From Crestor] AdvReac Intermediate Muscle Pain Verified 04/06/18 16:43 simvastatin [From Zocor] AdvReac Intermediate Muscle Pain Verified 04/06/18 16: 43 [id number]-[id number] Reductase AdvReac Intermediate Muscle Pain Verified 04/06/18 16: 43 Inhibitor Home Medications Home Medications Medication Instructions Recorded Confirmed Type albuterol sulfate 2.5 mg INHALATION DIRECTED PRN 04/06/18 04/06/18 History albuterol sulfate [Proventil HFA] 2 puff INHALATION Q6H PRN 04/06/18 04/06/18 History amoxicillin 2,000 mg PO ONCE PRN 04/06/18 04/06/18 History brinzolamide [Azopt] 1 drp OPB BID 04/06/18 04/06/18 History cholecalciferol (vitamin D3) 2,000 unit PO QAM 04/06/18 04/06/18 History [Vitamin D3] colestipol 8 g PO QAM 04/06/18 04/06/18 History desloratadine 5 mg PO QAM 04/06/18 04/06/18 History furosemide [Lasix] 20 mg PO DAILY 04/06/18 04/06/18 History latanoprost 1 drp OPB HS 04/06/18 04/06/18 History levothyroxine 75 mcg PO DAILY 04/06/18 04/06/18 History metformin 500 mg PO BIDM 04/06/18 04/06/18 History metronidazole 1 applic TOPICAL BID 04/06/18 04/06/18 History sotalol 80 mg PO AMPM 04/06/18 04/06/18 History timolol maleate 1 drp OPB BID 04/06/18 04/06/18 History tiotropium bromide [Spiriva with 1 cap INHALATION DAILY 04/06/18 04/06/18 History HandiHaler] warfarin [Coumadin] 5 mg PO 2XWK 04/06/18 04/06/18 History warfarin [Coumadin] 7.5 mg PO 5XWK 04/06/18 04/06/18 History Patient History Medical History CHF (congestive heart failure) (Chronic) HTN (hypertension) (Chronic) Diabetes (Chronic) Pacemaker (Chronic) Atrial fibrillation (Chronic) HLD (hyperlipidemia) (Chronic) Glaucoma (Chronic) 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 (PE) (Chronic) CAD (coronary artery disease) (Chronic) "S/p CABG x4 in 2012" Surgical History S/P AVR (aortic valve replacement) (Chronic) Family History Other No significant family history Social History Current Living Situation: Spouse Other Information That Helps Us Care for You: No Feels Safe at Home: Yes Safety Concerns: Feels Safe At This Time Smoking Status: Never smoker Hx Alcohol Use: No Hx Substance Use: No Beliefs That Will Affect Care: None Communication Ability: Effective Physical Exam 2 Vital Signs (Past 24 Hours): Last Vital Signs Temp 36.8 C 04/07/18 12:07 Pulse 74 04/07/18 12:07 Resp 19 04/07/18 12:07 BP 128/69 04/07/18 12:07 Pulse Ox 98 04/07/18 12:07 Physical Exam: Patient is an elderly male currently in no acute distress sitting upright in bed vital signs as above HEENT exam: Normocephalic and atraumatic, pupils equal round react light accommodation nares without discharge throat was clear Neck: Thin with minimal jugular venous distention at 30 degrees Lungs few scattered crackles at bases but predominantly clear Cardiovascular exam: Irregularly irregular with a grade 2/6 systolic murmur no diastolic murmur. Chest incisions well-healed there is no S3 gallop Abdomen: Soft nontender prescription For megaly hepatojugular reflux Extremities: 1+ lower extremity edema with intact pulses Neuro patient alert answering questions appropriately for age Results & Data Laboratory Results Laboratory Results - last 24 hr 04/06/18 04/06/18 04/06/18 15:42 15:42 15:42 WBC 9.87 RBC 4.43 L Hgb 15.3 POC Hgb Hct 42.8 POC Hct MCV 96.6 MCH 34.5 H MCHC 35.7 RDW Std Deviation 50.2 H RDW Coeff of Aida 14.2 Plt Count 127 L MPV 9.9 Immature Gran % (Auto) 0.3 Neut % (Auto) 76.5 Lymph % (Auto) 12.9 [place] % (Auto) 9.5 Eos % (Auto) 0.7 Baso % (Auto) 0.1 Immature Gran # (Auto) 0.03 H Neut # (Auto) 7.55 H Lymph # (Auto) 1.27 [place] # (Auto) 0.94 H Eos # (Auto) 0.07 Baso # (Auto) 0.01 Platelet Estimate RBC Morphology PT 20.6 H INR 2.1 H POC Sodium Sodium 126 L POC Potassium Potassium 4.2 POC Chloride Chloride 93 L Carbon Dioxide 22 POC Total CO2 Anion Gap 11.0 POC Anion Gap POC BUN BUN 28 H Creatinine 1.50 H POC Creatinine Est Cr Clr Drug Dosing Not Reportable Est GFR ( Amer) 47.2 Est GFR (Non-Af Amer) 40.7 BUN/Creatinine Ratio 18.8 Glucose 120 H POC Glucose POC Glucose (other) Osmolality Calcium 9.6 POC Ioniz Calcium Reginald Magnesium 2.1 Total Bilirubin 1.2 H AST 22 ALT 25 Alkaline Phosphatase 126 H Ammonia Troponin I < 0.015 NT-Pro-B Natriuret Pep 5852 H Total Protein 7.3 Albumin 3.7 Globulin 3.6 Albumin/Globulin Ratio 1.0 Lipase 156 TSH Free T4 Total T3 Urine Color Urine Appearance Urine pH Ur Specific [place] Urine Protein Urine Glucose (UA) Urine Ketones Urine Blood Urine Nitrite Urine Bilirubin Urine Urobilinogen Ur Leukocyte Esterase Urine Osmolality Ur Random Sodium 04/06/18 04/06/18 04/06/18 15:42 15:42 15:42 WBC RBC Hgb POC Hgb Hct POC Hct MCV MCH MCHC RDW Std Deviation RDW Coeff of Aida Plt Count MPV Immature Gran % (Auto) Neut % (Auto) Lymph % (Auto) [place] % (Auto) Eos % (Auto) Baso % (Auto) Immature Gran # (Auto) Neut # (Auto) Lymph # (Auto) [place] # (Auto) Eos # (Auto) Baso # (Auto) Platelet Estimate RBC Morphology PT INR POC Sodium Sodium POC Potassium Potassium POC Chloride Chloride Carbon Dioxide POC Total CO2 Anion Gap POC Anion Gap POC BUN BUN Creatinine POC Creatinine Est Cr Clr Drug Dosing Est GFR ( Amer) Est GFR (Non-Af Amer) BUN/Creatinine Ratio Glucose POC Glucose POC Glucose (other) Osmolality 274 L Calcium POC Ioniz Calcium Reginald Magnesium Total Bilirubin AST ALT Alkaline Phosphatase Ammonia Troponin I NT-Pro-B Natriuret Pep Total Protein Albumin Globulin Albumin/Globulin Ratio Lipase TSH 7.120 H Free T4 Total T3 0.59 L Urine Color Urine Appearance Urine pH Ur Specific [place] Urine Protein Urine Glucose (UA) Urine Ketones Urine Blood Urine Nitrite Urine Bilirubin Urine Urobilinogen Ur Leukocyte Esterase Urine Osmolality Ur Random Sodium 04/06/18 04/06/18 04/06/18 16:28 16:28 16:28 WBC RBC Hgb POC Hgb Hct POC Hct MCV MCH MCHC RDW Std Deviation RDW Coeff of Aida Plt Count MPV Immature Gran % (Auto) Neut % (Auto) Lymph % (Auto) [place] % (Auto) Eos % (Auto) Baso % (Auto) Immature Gran # (Auto) Neut # (Auto) Lymph # (Auto) [place] # (Auto) Eos # (Auto) Baso # (Auto) Platelet Estimate RBC Morphology PT INR POC Sodium Sodium POC Potassium Potassium POC Chloride Chloride Carbon Dioxide POC Total CO2 Anion Gap POC Anion Gap POC BUN BUN Creatinine POC Creatinine Est Cr Clr Drug Dosing Est GFR ( Amer) Est GFR (Non-Af Amer) BUN/Creatinine Ratio Glucose POC Glucose POC Glucose (other) Osmolality Calcium POC Ioniz Calcium Reginald Magnesium Total Bilirubin AST ALT Alkaline Phosphatase Ammonia Troponin I NT-Pro-B Natriuret Pep Total Protein Albumin Globulin Albumin/Globulin Ratio Lipase TSH Free T4 Total T3 Urine Color Yellow Urine Appearance Clear Urine pH 5.0 Ur Specific [place] 1.011 Urine Protein Negative Urine Glucose (UA) Negative Urine Ketones Negative Urine Blood Negative Urine Nitrite Negative Urine Bilirubin Negative Urine Urobilinogen Negative Ur Leukocyte Esterase Negative Urine Osmolality 286 L Ur Random Sodium 31 04/06/18 04/06/18 04/06/18 21:02 22:55 22:55 WBC RBC Hgb POC Hgb 15.3 Hct POC Hct 45 MCV MCH MCHC RDW Std Deviation RDW Coeff of Aida Plt Count MPV Immature Gran % (Auto) Neut % (Auto) Lymph % (Auto) [place] % (Auto) Eos % (Auto) Baso % (Auto) Immature Gran # (Auto) Neut # (Auto) Lymph # (Auto) [place] # (Auto) Eos # (Auto) Baso # (Auto) Platelet Estimate RBC Morphology PT INR POC Sodium 128 L Sodium 129 L POC Potassium 4.1 Potassium POC Chloride 94 L Chloride Carbon Dioxide POC Total CO2 22 L Anion Gap POC Anion Gap 17.0 POC BUN 28 H BUN Creatinine POC Creatinine 1.4 H Est Cr Clr Drug Dosing Est GFR ( Amer) Est GFR (Non-Af Amer) BUN/Creatinine Ratio Glucose POC Glucose POC Glucose (other) 136 H Osmolality Calcium POC Ioniz Calcium Reginald 1.17 Magnesium Total Bilirubin AST ALT Alkaline Phosphatase Ammonia 10.9 L Troponin I NT-Pro-B Natriuret Pep Total Protein Albumin Globulin Albumin/Globulin Ratio Lipase TSH Free T4 1.32 Total T3 Urine Color Urine Appearance Urine pH Ur Specific [place] Urine Protein Urine Glucose (UA) Urine Ketones Urine Blood Urine Nitrite Urine Bilirubin Urine Urobilinogen Ur Leukocyte Esterase Urine Osmolality Ur Random Sodium 04/07/18 04/07/18 04/07/18 00:01 05:47 05:47 WBC 7.28 RBC 4.00 L Hgb 14.0 POC Hgb Hct 38.3 L POC Hct MCV 95.8 MCH 35.0 H MCHC 36.6 H RDW Std Deviation 49.9 H RDW Coeff of Aida 14.3 Plt Count 99 L MPV 9.9 Immature Gran % (Auto) 0.3 Neut % (Auto) 67.6 Lymph % (Auto) 18.5 [place] % (Auto) 12.0 Eos % (Auto) 1.2 Baso % (Auto) 0.4 Immature Gran # (Auto) 0.02 Neut # (Auto) 4.92 Lymph # (Auto) 1.35 [place] # (Auto) 0.87 H Eos # (Auto) 0.09 Baso # (Auto) 0.03 Platelet Estimate Decreased RBC Morphology Unremarkable PT 18.1 H INR 1.9 H POC Sodium Sodium POC Potassium Potassium POC Chloride Chloride Carbon Dioxide POC Total CO2 Anion Gap POC Anion Gap POC BUN BUN Creatinine POC Creatinine Est Cr Clr Drug Dosing Est GFR ( Amer) Est GFR (Non-Af Amer) BUN/Creatinine Ratio Glucose POC Glucose 129 H POC Glucose (other) Osmolality Calcium POC Ioniz Calcium Reginald Magnesium Total Bilirubin AST ALT Alkaline Phosphatase Ammonia Troponin I NT-Pro-B Natriuret Pep Total Protein Albumin Globulin Albumin/Globulin Ratio Lipase TSH Free T4 Total T3 Urine Color Urine Appearance Urine pH Ur Specific [place] Urine Protein Urine Glucose (UA) Urine Ketones Urine Blood Urine Nitrite Urine Bilirubin Urine Urobilinogen Ur Leukocyte Esterase Urine Osmolality Ur Random Sodium 04/07/18 04/07/18 04/07/18 05:47 07:17 09:06 WBC RBC Hgb POC Hgb Hct POC Hct MCV MCH MCHC RDW Std Deviation RDW Coeff of Aida Plt Count MPV Immature Gran % (Auto) Neut % (Auto) Lymph % (Auto) [place] % (Auto) Eos % (Auto) Baso % (Auto) Immature Gran # (Auto) Neut # (Auto) Lymph # (Auto) [place] # (Auto) Eos # (Auto) Baso # (Auto) Platelet Estimate RBC Morphology PT INR POC Sodium Sodium 130 L POC Potassium Potassium 3.7 POC Chloride Chloride 98 Carbon Dioxide 21 POC Total CO2 Anion Gap 11.0 POC Anion Gap POC BUN BUN 27 H Creatinine 1.36 POC Creatinine Est Cr Clr Drug Dosing 39.2 Est GFR ( Amer) 53.1 Est GFR (Non-Af Amer) 45.8 BUN/Creatinine Ratio 19.9 Glucose 114 H POC Glucose 112 H POC Glucose (other) Osmolality 275 L Calcium 9.1 POC Ioniz Calcium Reginald Magnesium Total Bilirubin AST ALT Alkaline Phosphatase Ammonia Troponin I 0.027 NT-Pro-B Natriuret Pep Total Protein Albumin Globulin Albumin/Globulin Ratio Lipase TSH Free T4 Total T3 Urine Color Urine Appearance Urine pH Ur Specific [place] Urine Protein Urine Glucose (UA) Urine Ketones Urine Blood Urine Nitrite Urine Bilirubin Urine Urobilinogen Ur Leukocyte Esterase Urine Osmolality Ur Random Sodium 04/07/18 11:11 WBC RBC Hgb POC Hgb Hct POC Hct MCV MCH MCHC RDW Std Deviation RDW Coeff of Aida Plt Count MPV Immature Gran % (Auto) Neut % (Auto) Lymph % (Auto) [place] % (Auto) Eos % (Auto) Baso % (Auto) Immature Gran # (Auto) Neut # (Auto) Lymph # (Auto) [place] # (Auto) Eos # (Auto) Baso # (Auto) Platelet Estimate RBC Morphology PT INR POC Sodium Sodium POC Potassium Potassium POC Chloride Chloride Carbon Dioxide POC Total CO2 Anion Gap POC Anion Gap POC BUN BUN Creatinine POC Creatinine Est Cr Clr Drug Dosing Est GFR ( Amer) Est GFR (Non-Af Amer) BUN/Creatinine Ratio Glucose POC Glucose 134 H POC Glucose (other) Osmolality Calcium POC Ioniz Calcium Reginald Magnesium Total Bilirubin AST ALT Alkaline Phosphatase Ammonia Troponin I NT-Pro-B Natriuret Pep Total Protein Albumin Globulin Albumin/Globulin Ratio Lipase TSH Free T4 Total T3 Urine Color Urine Appearance Urine pH Ur Specific [place] Urine Protein Urine Glucose (UA) Urine Ketones Urine Blood Urine Nitrite Urine Bilirubin Urine Urobilinogen Ur Leukocyte Esterase Urine Osmolality Ur Random Sodium ECG Additional Comments: Atrial fibrillation with ventricular paced rhythm.
[2018-04-07] MEDS ORDERED: METOPROLOL SUCC 50MG EXT REL TAB PO ONE (13:45)
[2018-04-07] MEDS: COLESTIPOL HCL 1 GM TAB PO SCH (15:43)
[2018-04-07] MEDS ORDERED: WARFARIN SOD 7.5 MG TAB PO SCH (16:00)
[2018-04-07] MEDS ORDERED: LATANOPROST 0.005% OP SOLN 2.5 ML BTL OPB SCH (21:00)
[2018-04-07] MEDS ORDERED: SODIUM CHLORIDE 0.65% NA SOLN 45 ML (OCEAN) ONE (21:21)
[2018-04-07] MEDS: METOPROLOL SUCC 50MG EXT REL TAB PO SCH (21:27)
[2018-04-08] MEDS: LEVOTHYROXINE SODIUM 88 MCG TABLET PO SCH (06:30)
[2018-04-08 07:00] LABS: Estimated Average Glucose 134 mg/dl
[2018-04-08] MEDS: FUROSEMIDE 20 MG TAB PO SCH (08:08)
[2018-04-08] MEDS: TIOTROPIUM BROMIDE 5 PUFF/90 MCG INH INH SCH (08:08)
[2018-04-08] MEDS: METOPROLOL SUCC 50MG EXT REL TAB PO SCH (08:08)
[2018-04-08] MEDS: BRINZOLAMIDE (AZOPT) OPS 10 ML BTL OPB SCH (08:09)
[2018-04-08] MEDS: metroNIDAZOLE 0.75% TOPICAL GEL 45 GM TUBE TOP SCH (08:09)
[2018-04-08] MEDS: TIMOLOL MALEATE 0.25% OP SOLN 5 ML BTL OPB SCH (08:09)
[2018-04-08] MEDS: INSULIN ASPART 100 UNITS/ML 3 ML PEN SC SCH ×2 (08:14→13:47)
[2018-04-08 08:54] LABS: Basophils # (auto) 0.01 K/uL (0-0.2); Basophils % (auto) 0.1 %; Eosinophils # (auto) 0.07 K/uL (0-0.5); Hematocrit (blood only) 39.3 % (42-52); Hemoglobin 13.8 g/dL (14.0-18.0); Immature Granulocytes # (auto) 0.03 K/uL (0.00-0.02); Immature Granulocytes % (auto) 0.4 %; Lymphocytes # (auto) 1.43 K/uL (1.2-3.4); Lymphocytes % (auto) 20.5 %; Mean Corpuscular Hgb Conc 35.1 g/dL (32-36); Mean Corpuscular Volume 97.5 fL (80-100); Mean Platelet Volume 9.7 fL (7.4-10.4); Monocytes # (auto) 0.63 K/uL (0.11-0.59); Neutrophils # (auto) 4.81 K/uL (1.4-6.5); Platelet Count 103 K/uL (130-400); RDW Coefficient of Variation 14.4 % (11.5-14.5); RDW Standard Deviation 51.2 fL (36.4-46.3); Red Blood Count 4.03 M/uL (4.7-6.1); White Blood Count 6.98 K/uL (4.8-10.8)
[2018-04-08 09:17] LABS: Calcium 9.3 mg/dl (8.5-10.1); Creatinine Clr Calc Pharmacy 34.4 ml/min; Est GFR (African American) 45.3; Est GFR (Non-African American) 39.1; Potassium 3.8 mmol/L (3.5-5.1)
[2018-04-08] MEDS: COLESTIPOL HCL 1 GM TAB PO SCH (10:08)
--- NOTE | 2018-04-08 10:13 | Hospitalist Progress Note ---
Date of Service April 08, 2018 Assessment & Plan (1) Acute decompensated heart failure: hx chronic diastolic heart failure (EF 55% TTE 2017) -- echo: EF 25% -- received 1 dose of IV Lasix with good diuresis crea up to 1.5 from 1.3 -- on usual Lasix 20mg po daily plan to transition to lasix 40 and 20mg alternating doses Hyponatremia secondary to CHF -- Na improved to 132 needs to be monitored hx congenital bicuspid aortic valve status post bioprosthetic AVR CAD status post CABG A. fib status post maze status post PPM on Coumadin, rate controlled INR pending sotalol changed to Metoprolol hx COPD as per records, not in acute exacerbation history PE/DVT status post IVC filter placement - on coumadin DM2 on oral meds, well controlled as of recent outpatient hemoglobin A1c of 6.4 last November 2016 CRI -- crea increased to 1.5 form 1.3 monitor chronic thrombocytopenia Hypothyroidism -- continue usual lthyroxine dose repeat TFTs as outpatient Anxiety DSO, patient/family prefer non-pharmacologic interventions for now given adverse reactions to 2 recent medication trials outpatient. DVT prophylaxis. Coumadin INR 2-3 DNR Disposition pending lives with family at home Subjective ff up for acute CHF exacerbation seen sitting up in bed, comfortable in good spirit states he feels better overall denies dyspnea, ambulating in the room with no problems no chest pain, dizziness, nausea/vomiting no other symptoms denies other symptoms Physical Exam 2 Vital Signs (Past 24 Hours): Last Vital Signs Temp 36.8 C 04/08/18 07:40 Pulse 85 04/08/18 07:40 Resp 16 04/08/18 07:40 BP 135/71 04/08/18 07:40 Pulse Ox 98 04/08/18 07:40 Physical Exam: General- oriented x 2, not in distress, speaks in sentences with no effort or accessory muscle use Eyes- anicteric Neck- no JVD Lungs- clear BS BL no rales no wheezing Heart- normal rate, regular rhythm; no murmurs Abdomen- normal bowel sounds, nondistended, soft, nontender Extremities- no pretibial edema, no calf tenderness Neuro- alert, oriented x 2; no gross focal neurologic deficits Skin- warm & dry Results & Data Laboratory Results Laboratory Results - last 24 hr 04/06/18 04/07/18 04/07/18 15:42 11:11 13:00 WBC RBC Hgb Hct MCV MCH MCHC RDW Std Deviation RDW Coeff of Aida Plt Count MPV Immature Gran % (Auto) Neut % (Auto) Lymph % (Auto) [place] % (Auto) Eos % (Auto) Baso % (Auto) Immature Gran # (Auto) Neut # (Auto) Lymph # (Auto) [place] # (Auto) Eos # (Auto) Baso # (Auto) Sodium Potassium Chloride Carbon Dioxide Anion Gap BUN Creatinine Est Cr Clr Drug Dosing Est GFR ( Amer) Est GFR (Non-Af Amer) BUN/Creatinine Ratio Glucose POC Glucose 134 H Estimat Average Glucose 134 Hemoglobin A1c 6.3 H Calcium Ur Random Sodium 30 04/07/18 04/07/18 04/08/18 16:32 20:33 07:14 WBC RBC Hgb Hct MCV MCH MCHC RDW Std Deviation RDW Coeff of Aida Plt Count MPV Immature Gran % (Auto) Neut % (Auto) Lymph % (Auto) [place] % (Auto) Eos % (Auto) Baso % (Auto) Immature Gran # (Auto) Neut # (Auto) Lymph # (Auto) [place] # (Auto) Eos # (Auto) Baso # (Auto) Sodium Potassium Chloride Carbon Dioxide Anion Gap BUN Creatinine Est Cr Clr Drug Dosing Est GFR ( Amer) Est GFR (Non-Af Amer) BUN/Creatinine Ratio Glucose POC Glucose 127 H 147 H 70 Estimat Average Glucose Hemoglobin A1c Calcium Ur Random Sodium 04/08/18 04/08/18 08:31 08:31 WBC 6.98 RBC 4.03 L Hgb 13.8 L Hct 39.3 L MCV 97.5 MCH 34.2 H MCHC 35.1 RDW Std Deviation 51.2 H RDW Coeff of Aida 14.4 Plt Count 103 L MPV 9.7 Immature Gran % (Auto) 0.4 Neut % (Auto) 69.0 Lymph % (Auto) 20.5 [place] % (Auto) 9.0 Eos % (Auto) 1.0 Baso % (Auto) 0.1 Immature Gran # (Auto) 0.03 H Neut # (Auto) 4.81 Lymph # (Auto) 1.43 [place] # (Auto) 0.63 H Eos # (Auto) 0.07 Baso # (Auto) 0.01 Sodium 132 L Potassium 3.8 Chloride 98 Carbon Dioxide 26 Anion Gap 8.0 BUN 26 H Creatinine 1.55 H Est Cr Clr Drug Dosing 34.4 Est GFR ( Amer) 45.3 Est GFR (Non-Af Amer) 39.1 BUN/Creatinine Ratio 17.0 Glucose 185 H POC Glucose Estimat Average Glucose Hemoglobin A1c Calcium 9.3 Ur Random Sodium
--- NOTE | 2018-04-08 11:53 | Cardiology Progress Note ---
Date of Service April 08, 2018 Assessment & Plan (1) Acute decompensated heart failure: Clinically improved We will increase oral furosemide dosing to 40 mg/day alternating with 20 mg Add Isordil 10 mg twice daily consider addition of hydralazine as outpatient Etiology likely multifactorial possibly due to more frequent atrial fibrillation as noted below. Echocardiogram demonstrates diffuse LV dysfunction EF approximately 30% probably secondary to paced rhythm persistent atrial arrhythmias Plan as above sotalol discontinued patient switched to metoprolol XL 50 mg twice per day, with room to increase. Nitrates added to regimen. Pacemaker reprogrammed to DDIR mode reduce a flutter tracking If heart failure returns could consider hospitalization initiation of antiarrhythmic therapy with amiodarone and trial attempt to return to sinus rhythm Possible discharge today would recommend follow-up with Dr. Arellano as scheduled. BMP prior to return (2) Acute hyponatremia: Likely secondary to congestive heart failure improved after diuresis (3) S/P AVR (aortic valve replacement): Aortic valve prosthesis functioning appropriately though noted declining overall LV function (4) CAD (coronary artery disease): No anginal symptoms or complaints to suggest acute ischemia (5) Atrial fibrillation: Patient history of past paroxysmal trolled intermittently in sinus rhythm with sotalol. Given prolonged QT interval worsening renal insufficiency and patient near persistent atrial fibrillation will discontinue sotalol switch to metoprolol XL 50 mg twice per day. We will maintain chronic anticoagulation with warfarin Subjective Patient seen and examined chart medications telemetry reviewed. Feels substantially better this morning was able to walk in the hallway without limitation as a substantial improvement. Pacemaker was preprogrammed this morning to result in less tracking of atrial tachycardia/flutter. Breathing is easily notes no chest pains dizziness or lightheadedness notes no orthopnea Physical Exam 2 Vital Signs (Past 24 Hours): Last Vital Signs Temp 36.8 C 04/08/18 07:40 Pulse 85 04/08/18 07:40 Resp 16 04/08/18 07:40 BP 135/71 04/08/18 07:40 Pulse Ox 100 04/08/18 11:02 Constitutional: Age-appropriate male currently no acute distress vital signs as above Eyes: PERRL, conjunctivae normal, anicteric sclerae Neck: trachea midline, no thyromegaly Respiratory: normal respiratory effort, lungs clear to auscultation Cardiovascular: Heart Sounds: no gallop Extremities: + pedal edema (1+) Irregularly irregular with a grade 2/6 systolic murmur there is no diastolic murmurs no S3 gallop PMI is displaced laterally Chest (Breasts): Additional Comments: Pacemaker site without irritation Gastrointestinal (Abdomen): normal bowel sounds, soft, nontender, no hepatosplenomegaly Results & Data Laboratory Results Laboratory Results - last 24 hr 04/06/18 04/07/18 04/07/18 15:42 13:00 16:32 WBC RBC Hgb Hct MCV MCH MCHC RDW Std Deviation RDW Coeff of Aida Plt Count MPV Immature Gran % (Auto) Neut % (Auto) Lymph % (Auto) [place] % (Auto) Eos % (Auto) Baso % (Auto) Immature Gran # (Auto) Neut # (Auto) Lymph # (Auto) [place] # (Auto) Eos # (Auto) Baso # (Auto) Sodium Potassium Chloride Carbon Dioxide Anion Gap BUN Creatinine Est Cr Clr Drug Dosing Est GFR ( Amer) Est GFR (Non-Af Amer) BUN/Creatinine Ratio Glucose POC Glucose 127 H Estimat Average Glucose 134 Hemoglobin A1c 6.3 H Calcium Ur Random Sodium 30 04/07/18 04/08/18 04/08/18 20:33 07:14 08:31 WBC 6.98 RBC 4.03 L Hgb 13.8 L Hct 39.3 L MCV 97.5 MCH 34.2 H MCHC 35.1 RDW Std Deviation 51.2 H RDW Coeff of Aida 14.4 Plt Count 103 L MPV 9.7 Immature Gran % (Auto) 0.4 Neut % (Auto) 69.0 Lymph % (Auto) 20.5 [place] % (Auto) 9.0 Eos % (Auto) 1.0 Baso % (Auto) 0.1 Immature Gran # (Auto) 0.03 H Neut # (Auto) 4.81 Lymph # (Auto) 1.43 [place] # (Auto) 0.63 H Eos # (Auto) 0.07 Baso # (Auto) 0.01 Sodium Potassium Chloride Carbon Dioxide Anion Gap BUN Creatinine Est Cr Clr Drug Dosing Est GFR ( Amer) Est GFR (Non-Af Amer) BUN/Creatinine Ratio Glucose POC Glucose 147 H 70 Estimat Average Glucose Hemoglobin A1c Calcium Ur Random Sodium 04/08/18 08:31 WBC RBC Hgb Hct MCV MCH MCHC RDW Std Deviation RDW Coeff of Aida Plt Count MPV Immature Gran % (Auto) Neut % (Auto) Lymph % (Auto) [place] % (Auto) Eos % (Auto) Baso % (Auto) Immature Gran # (Auto) Neut # (Auto) Lymph # (Auto) [place] # (Auto) Eos # (Auto) Baso # (Auto) Sodium 132 L Potassium 3.8 Chloride 98 Carbon Dioxide 26 Anion Gap 8.0 BUN 26 H Creatinine 1.55 H Est Cr Clr Drug Dosing 34.4 Est GFR ( Amer) 45.3 Est GFR (Non-Af Amer) 39.1 BUN/Creatinine Ratio 17.0 Glucose 185 H POC Glucose Estimat Average Glucose Hemoglobin A1c Calcium 9.3 Ur Random Sodium
[2018-04-08] MEDS ORDERED: ISOSORBIDE DINITRATE 10 MG TAB PO SCH (12:00)
[2018-04-08] MEDS ORDERED: WARFARIN SOD 5 MG TAB PO SCH (16:00)
--- NOTE | 2018-04-08 16:38 | Discharge Summary ---
Date of Service April 08, 2018 Admission HPI Per Admitting Provider History obtained from patient, family, and records. Medical history significant for chronic diastolic heart failure (EF 55% TTE 2017 ), history congenital bicuspid aortic valve status post bioprosthetic AVR, CAD status post CABG, A. fib status post maze status post PPM on Coumadin, history PE/DVT status post IVC filter placement, COPD as per records, DM2 on oral meds, CRI (baseline creatinine 1.2-1.3), chronic thrombocytopenia Recent confinement November 2016 for decompensated heart failure. Patient brought to the ER tonight because of few days history of shortness of breath especially on exertion, fluid retention, approximately 5 pound weight gain as per patient/family. Patient denies chest pain. Denies dietary indiscretion. No unusual cough symptoms. Patient compliant with home medications. At the ER, patient given IV Lasix for CHF. Medical History as above Recent outpatient trials of BuSpar and Sertraline for anxiety stopped after patient developed confusion while taking medications. 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 Diastolic murmur ABDOMEN: Some distention, nontender EXTREMITIES : Bilateral LE swelling, no tenderness, no other conspicuous deformities noted NEUROLOGIC : Coherent, no facial asymmetry, no other gross focality Principal Diagnosis ACUTE CONGESTIVE HEART FAILURE EXACERBATION Discharge Exam Vital Signs (Past 24 Hours): Last Vital Signs Temp 36.8 C 04/08/18 07:40 Pulse 85 04/08/18 07:40 Resp 16 04/08/18 07:40 BP 135/71 04/08/18 07:40 Pulse Ox 98 04/08/18 07:40 Physical Exam: General- oriented x 2, not in distress, speaks in sentences with no effort or accessory muscle use Eyes- anicteric Neck- no JVD Lungs- clear BS BL no rales no wheezing Heart- normal rate, regular rhythm; no murmurs Abdomen- normal bowel sounds, nondistended, soft, nontender Extremities- no pretibial edema, no calf tenderness Neuro- alert, oriented x 2; no gross focal neurologic deficits Skin- warm & dry Discharge Data Allergies Allergy/AdvReac Type Severity Reaction Status Date / Time aspirin Allergy Mild SWELLING Verified 04/06/18 16:14 UPPER LIP oxycodone Allergy Unknown PER Verified 04/06/18 16:43 [facility] LIST pravastatin [From Pravachol] AdvReac Intermediate Muscle Pain Verified 04/06/18 16:43 rosuvastatin [From Crestor] AdvReac Intermediate Muscle Pain Verified 04/06/18 16:43 simvastatin [From Zocor] AdvReac Intermediate Muscle Pain Verified 04/06/18 16: 43 Etafzll-Typ-Ity Reductase AdvReac Intermediate Muscle Pain Verified 04/06/18 16: 43 Inhibitor Consultations 04/06/18 21:18 ED Decision to Admit Stat 04/06/18 23:35 Consult Cardiology Routine Consult Case Management - Discharge Planning Routine Hospital Course (1) Acute decompensated heart failure: hx chronic diastolic heart failure (EF 55% TTE 2017) --IMPRESSION: 1. Mild cardiomegaly with volume overload/congestive change and mild to moderate pulmonary edema. 2. Suspected trace bilateral pleural effusions. -- evaluated by [facility] Dr Burris "Etiology likely multifactorial possibly due to more frequent atrial fibrillation as noted below. Echocardiogram demonstrates diffuse LV dysfunction EF approximately 30% probably secondary to paced rhythm persistent atrial arrhythmias" -- received 1 dose of IV Lasix with good diuresis crea up to 1.5 from 1.3 -- on usual Lasix 20mg po daily transitioned to lasix 40 and 20mg alternating doses, monitor renal function -- sotalol discontinued patient switched to metoprolol XL 50 mg twice per day, with room to increase. Isordi 10mg BID added Pacemaker reprogrammed to DDIR mode reduce a flutter tracking -- clinically improved ff up with Cardiology [facility] Dr Arellano in 2 weeks Hyponatremia secondary to CHF -- Na improved to 132 needs to be monitored hx congenital bicuspid aortic valve status post bioprosthetic AVR CAD status post CABG A. fib status post maze status post PPM on Coumadin, rate controlled INR 1.9 continue Coumadin sotalol changed to Metoprolol hx COPD as per records, not in acute exacerbation history PE/DVT status post IVC filter placement - on coumadin DM2 on oral meds, well controlled as of recent outpatient hemoglobin A1c of 6.4 last November 2016 -- now on increased Lasix dose crea 1.5, GFR 39 will transition from Metformin to Glipizide to prevent renal injury/ metabolic acidosis -- monitor blood glucose CRI -- crea increased to 1.5 form 1.3 monitor with increased dose of Lasix chronic thrombocytopenia Hypothyroidism -- continue usual lthyroxine dose repeat TFTs as outpatient Anxiety -- stable Disposition d/c home with home health ff up with PCP and [employer] [employer] [facility] as noted in Discharge Instructions Total Time Total Time Spent Total Time Spent (In Minutes): 40 minutes Discharge Plan Discharge Items Patient Disposition: Home - Home Health Services Reason For Visit: CHF Discharge Diagnosis: ACUTE EXACERBATION OF CONGESTIVE HEART FAILURE Condition: Good Discharge Goals: Diagnostic testing and Therapeutic intervention Activity: As commented below Activity Comment: RESUME ACTIVITY GRADUALLY TOLERATED Non-emergency contact: Primary Care Provider and [employer] [facility] Call non-emergency contact if: you have any medication questions and your symptoms worsen Follow-up/Referrals: Freedom Burris MD [Physician] - Carlos Rojas MD [Primary Care Provider] - 04/15/18 12:25 pm Diet: Heart Healthy and Low Sodium (2gm) Fluids: 2000ml (8 cups) Addtl Provider Instructions: PLEASE FOLLOW UP WITH THE CARDIOLOGY CLINIC IN 3-4 WEEKS. THE CLINIC WILL BE CALLING YOU FOR THE APPOINTMENT. CALL PRIMARY CARE PHYSICIAN OR RETURN TO THE ER IMMEDIATELY IF WITH RECURRENCE/ WORSENING OF SYMPTOMS. Call your Primary Care doctor if any of the following symptoms or problems start or get worse: Shortness of breath or difficulty breathing Wake up at night short of breath Chest pain Cough Swelling of your hands, feet, or legs More fatigued or tired with your normal activity Palpitations - sudden fast heart beats WEIGHT Weigh yourself every morning after using the bathroom. Use the same scale. Wear the same amount of clothing. Write your weight down on a chart. Call your Primary Care doctor if you gain more than 2-3 pounds in 1-2 days. MEDICATIONS Use this discharge instruction sheet for medication instructions. Take your medications at the time your doctor ordered. Do not skip a dose of your medicines. If you miss a dose of medicine, take it as soon as possible, but DO NOT DOUBLE A DOSE. Read your medicine information when you get home. Know all of the side effects of your medicine. If in doubt, ask your pharmacist Call your Primary Care doctor's office if you have any side effects. Be sure all of your doctors know what medicine and herbs you take (including cold, flu, and herbal medicine). Take the following with you to your follow-up doctor appointments: Weight Chart Medication List List of questions Do not drink excessive alcohol, beer or wine. Prescriptions: New isosorbide dinitrate 10 mg Tablet 10 mg PO BID@0700,1200 30 Days Qty: 60 RF: 2 metoprolol succinate 50 mg Tablet Extended Release 24 Hr 50 mg PO BID 30 Days Qty: 60 RF: 2 glipizide 2.5 mg tablet extended release 24hr 2.5 mg PO DAILY Qty: 30 RF: 2 furosemide [Lasix] 20 mg tablet 20 mg PO UD Qty: 40 RF: 2 Continue latanoprost 0.005 % Drops 1 drp OPB HS RF: 0 brinzolamide [Azopt] 1 % Drops,Suspension 1 drp OPB BID RF: 0 timolol maleate 0.5 % Drops 1 drp OPB BID RF: 0 cholecalciferol (vitamin D3) [Vitamin D3] 2,000 unit Capsule 2,000 unit PO QAM RF: 0 amoxicillin 500 mg Capsule 2,000 mg PO ONCE PRN (Reason: PRIOR TO DENTAL VISITS) RF: 0 albuterol sulfate 2.5 mg /3 mL (0.083 %) Solution For Nebulization 2.5 mg INHALATION DIRECTED PRN (Reason: Shortness Of Breath Or Wheezing) RF: 0 warfarin [Coumadin] 2.5 mg Tablet 5 mg PO 2XWK RF: 0 warfarin [Coumadin] 2.5 mg Tablet 7.5 mg PO 5XWK RF: 0 levothyroxine 75 mcg Tablet 75 mcg PO DAILY RF: 0 desloratadine 5 mg Tablet 5 mg PO QAM RF: 0 metronidazole 0.75 % Cream 1 applic TOPICAL BID RF: 0 albuterol sulfate [Proventil HFA] 90 mcg/actuation Hfa Aerosol Inhaler 2 puff INHALATION Q6H PRN (Reason: Shortness Of Breath Or Wheezing) RF: 0 colestipol 1 gram Tablet 8 g PO QAM RF: 0 tiotropium bromide [Spiriva with HandiHaler] 18 mcg Capsule, W/Inhalation Device 1 cap INHALATION DAILY RF: 0 Discontinued metformin 500 mg Tablet 500 mg PO BIDM RF: 0 sotalol 80 mg Tablet 80 mg PO AMPM RF: 0 furosemide [Lasix] 20 mg Tablet 20 mg PO DAILY RF: 0 Stand-Alone Forms: [email or web address] [facility] [address] PrePlay/Other Patient Handouts: Tips Using Less Salt, Choices Low Salt, Diet Low Salt Dc Discharge Orders: Discharge Order (Routine); Ordered 04/08/18 Ordered By: Pool Bonner Admission Data Admit Date/Time: 04/06/18 22:55 Attending Provider: Pool Bonner Admit Provider: Brendan Bartlett Primary Care Provider: Carlos Rojas Other Providers: Brendan Bartlett ; Freedom Burris Service: Telemetry Other Interventions: Discharge Summary Assessment (RN) Last Done: 04/08/18 13:49 DC Date/Time DO NOT enter until pt leaves facility: 04/08/18 14:54
== END 2018-04-08 14:54 | disposition home health service (06) | DRG 292 ==
LOC: ED 14:29 → SUATTDRO 22:55 → 2E 22:55
DX: Z95.1 Presence of aortocoronary bypass graft; D69.6 Thrombocytopenia, unspecified; E87.1 Hypo-osmolality and hyponatremia; E78.5 Hyperlipidemia, unspecified; Z86.711 Personal history of pulmonary embolism; Z95.828 Presence of other vascular implants and grafts; N17.9 Acute kidney failure, unspecified; I25.10 Atherosclerotic heart disease of native coronary artery without angina pectoris; H40.9 Unspecified glaucoma; E03.9 Hypothyroidism, unspecified; I48.91 Unspecified atrial fibrillation; Z88.8 Allergy status to other drugs, medicaments and biological substances; Z79.82 Long term (current) use of aspirin; Z79.84 Long term (current) use of oral hypoglycemic drugs; Z79.01 Long term (current) use of anticoagulants; Z95.0 Presence of cardiac pacemaker; I50.33 Acute on chronic diastolic (congestive) heart failure; I11.0 Hypertensive heart disease with heart failure; E11.9 Type 2 diabetes mellitus without complications; Z88.5 Allergy status to narcotic agent; Z86.718 Personal history of other venous thrombosis and embolism